=== PATIENT | female | born 1965 | race Caucasian/White ===

== ENCOUNTER 2017-11-19 06:59 | Outpatient (CLI) | payer OTHER ==
[2017-11-19 08:24] LABS: WHITE BLOOD COUNT 8.8 X10'3 (4.5-11.0)
[2017-11-19 08:25] LABS: BASOPHILS % (AUTO) 0.4 % (0-1); EOSINOPHILS % (AUTO) 3.4 % (0-6); HEMATOCRIT 36.5 % (35.0-45.0); HEMOGLOBIN 12.5 g/dl (12.0-16.0); LYMPHOCYTES % (AUTO) 23.7 % (21-51); MEAN CORPUSCULAR HEMOGLOBIN 29.9 PG (27.0-31.0); MEAN CORPUSCULAR HGB CONC 34.2 % (33.0-36.5); MEAN CORPUSCULAR VOLUME 87.3 FL (78-98); MEAN PLATELET VOLUME 8.2 FL (7.4-10.4); MONOCYTES % (AUTO) 8.1 % (2-12); NEUTROPHILS # (AUTO) 5.6 X10'3 (1.8-7.7); NEUTROPHILS % (AUTO) 64.4 % (42-75); PLATELET COUNT 280 X10'3 (140-440); RED BLOOD COUNT 4.18 X10'6 (4.20-5.60); RED CELL DISTRIBUTION WIDTH 13.9 % (11.5-14.5)
[2017-11-19 08:26] LABS: EOSINOPHILS # (AUTO) 0.3 X10'3 (0-0.9); LYMPHOCYTES # (AUTO) 2.1 X10'3 (1.1-4.8); MONOCYTES # (AUTO) 0.7 X10'3 (0-0.9)
[2017-11-19 08:48] LABS: ALANINE AMINOTRANSFERASE 29 U/L (12-78); ALBUMIN 3.7 G/DL (3.4-5.0); ALKALINE PHOSPHATASE 69 IU/L (46-116); ANION GAP 5 (8-16); ASPARTATE AMINO TRANSFERASE 17 U/L (10-37); BILIRUBIN,TOTAL 0.3 MG/DL (0.1-1.0); BLOOD UREA NITROGEN 16 MG/DL (7-18); BUN/CREATININE RATIO 24.2 (6.6-38.0); CALCIUM 9.3 MG/DL (8.5-10.1); CHLORIDE 104 MMOL/L (99-107); CHOL/HDL RATIO 4.4 (0.00-4.99); CHOLESTEROL 172 MG/DL (0-200); CREATININE 0.66 MG/DL (0.40-0.90); GLUCOSE 89 MG/DL (70-104); HDL CHOLESTEROL 39 MG/DL (35-60); LDL CHOLESTEROL 94 MG/DL (50-100); POTASSIUM 4.1 MMOL/L (3.5-5.1); SODIUM 137 MMOL/L (135-145); TOTAL CARBON DIOXIDE 28.5 MMOL/L (24-32); TOTAL PROTEIN 7.4 G/DL (6.4-8.2); TRIGLYCERIDES 190 MG/DL (20-135); eGFR > 90 ML/MIN
[2017-11-21 05:19] LABS: ANTITHYROGLOBULIN AB 1.1 IU/mL (0.0-0.9)
== END 2017-11-19 23:59 | disposition home or self-care (01) ==
LOC: LAB 06:59
PROVIDERS: ATTEND Family Medicine
DX: Z00.01 Encounter for general adult medical examination with abnormal findings (principal); Z12.11 Encounter for screening for malignant neoplasm of colon; Z12.31 Encounter for screening mammogram for malignant neoplasm of breast; K21.9 Gastro-esophageal reflux disease without esophagitis; E03.9 Hypothyroidism, unspecified
CPT/HCPCS: 36415; 80053; 80061; 82306; 84439; 84443; 85025; 86376

== ENCOUNTER 2018-12-22 12:26 | Inpatient (IN) | payer OTHER ==
[~2018-12-22] VITALS: Ht 154.9 cm; Wt 107.4 kg
[2018-12-22 13:18] LABS: BASOPHILS # (AUTO) 0.1 X10'3 (0-0.2); BASOPHILS % (AUTO) 1.2 % (0-1); EOSINOPHILS # (AUTO) 0.2 X10'3 (0-0.9); EOSINOPHILS % (AUTO) 2.4 % (0-6); HEMATOCRIT 40.1 % (35.0-45.0); HEMOGLOBIN 13.1 g/dl (12.0-16.0); LYMPHOCYTES # (AUTO) 2.8 X10'3 (1.1-4.8); LYMPHOCYTES % (AUTO) 34.4 % (21-51); MEAN CORPUSCULAR HEMOGLOBIN 28.5 PG (27.0-31.0); MEAN CORPUSCULAR HGB CONC 32.7 g/dL (33.0-36.5); MEAN CORPUSCULAR VOLUME 87.3 FL (78-98); MEAN PLATELET VOLUME 8.4 FL (7.4-10.4); MONOCYTES # (AUTO) 0.6 X10'3 (0-0.9); NEUTROPHILS # (AUTO) 4.4 X10'3 (1.8-7.7); PLATELET COUNT 336 X10'3 (140-440); RED BLOOD COUNT 4.59 X10'6 (4.20-5.60); RED CELL DISTRIBUTION WIDTH 14.2 % (11.5-14.5); WHITE BLOOD COUNT 8.1 X10'3 (4.5-11.0)
[2018-12-22] MEDS ORDERED: aspirin 81mg tab.chew PO ONE (13:30)
[2018-12-22] MEDS ORDERED: nitroGLYCERIN 0.4mg SUBLingual tab SL PRN (13:30)
[2018-12-22 13:31] LABS: ALANINE AMINOTRANSFERASE 24 U/L (12-78); ALBUMIN 3.9 G/DL (3.4-5.0); ALBUMIN/GLOBULIN RATIO 1.1 (1.1-1.5); ALKALINE PHOSPHATASE 73 IU/L (46-116); ANION GAP 8 (8-16); ASPARTATE AMINO TRANSFERASE 14 U/L (10-37); BILIRUBIN,TOTAL 0.3 MG/DL (0.1-1.0); BLOOD UREA NITROGEN 14 MG/DL (7-18); BUN/CREATININE RATIO 19.4 (6.6-38.0); CALCIUM 9.7 MG/DL (8.5-10.1); CHLORIDE 103 MMOL/L (99-107); CREATININE 0.72 MG/DL (0.40-0.90); GLUCOSE 84 MG/DL (70-104); POTASSIUM 3.8 MMOL/L (3.5-5.1); SODIUM 139 MMOL/L (135-145); TOTAL CARBON DIOXIDE 27.7 MMOL/L (24-32); TOTAL PROTEIN 7.6 G/DL (6.4-8.2); eGFR 85 ML/MIN
--- NOTE | 2018-12-22 13:34 | NUR ---
Baby ASA x#4 held due to patient states she took #4 baby ASA this morning at home. Dr. Delaney informed.
[2018-12-22 13:41] LABS: PARTIAL THROMBOPLASTIN TIME 32 SECONDS (22-32); PROTHROMBIN TIME 10.3 SECONDS (9.0-12.0)
[2018-12-22] MEDS ORDERED: morphine 4 MG/ML inj SYRINge IV PRN ×2 (13:45→15:50)
[2018-12-22] MEDS ORDERED: ondansetron/PF 4mg/2ml inj IV ONE (13:45)
--- NOTE | 2018-12-22 13:46 | NUR ---
PATIENT REPORTS INCREASED PRESSURE AND SHARPPER CP WITH HERRERA AFTER NITRO. SECOND DOSE HELD, DR. RESENDIZ AWARE.
[2018-12-22] MEDS ORDERED: TRAZ-219 PO (14:32)
[2018-12-22] MEDS ORDERED: LEVO50TA8 PO (14:32)
[2018-12-22] MEDS ORDERED: GABA-532 PO (14:32)
[2018-12-22] MEDS ORDERED: PANT40TA4 PO (14:32)
[2018-12-22] MEDS ORDERED: VENL75CA61 PO (14:32)
[2018-12-22] MEDS ORDERED: magnesium Cl slow-release 64mg tablet PO PRN (15:50)
[2018-12-22] MEDS ORDERED: magnesium 4gm in 100ml NS 100 ML IV PRN (15:50)
[2018-12-22] MEDS ORDERED: potassium Cl 40MEQ/NS 500ml 500 ML IV PRN ×2 (15:50)
[2018-12-22] MEDS ORDERED: ondansetron/PF 4mg/2ml inj IV PRN (15:50)
[2018-12-22] MEDS ORDERED: potassium Cl 20 mEq SR tablet PO PRN ×2 (15:50)
[2018-12-22] MEDS ORDERED: magnesium 2GM in 50ml NS 50 ML IV PRN (15:50)
--- NOTE | 2018-12-22 17:13 | NUR ---
I have received report from Pepito BEDOLLA and had the opportunity to ask questions, the patient has not yet arrived from the ED.
[2018-12-22 18:00] VITALS: BP 128/77
--- NOTE | 2018-12-22 18:17 | NUR ---
Problems reprioritized. Patient report given, questions answered & plan of care reviewed with Sánchez BEDOLLA.
[2018-12-22] MEDS: gabapentin 300mg capsule PO SCH ×2 (21:09→21:11)
[2018-12-22] MEDS: traZODone 50mg tablet PO SCH (21:10)
[2018-12-22 22:00] VITALS: BP 113/57
[2018-12-23] VITALS (19 sets, daily range): BP systolic 88–135; BP diastolic 45–77
[2018-12-23 01:28] LABS: BASOPHILS % (AUTO) 0.3 % (0-1); EOSINOPHILS # (AUTO) 0.2 X10'3 (0-0.9); EOSINOPHILS % (AUTO) 2.9 % (0-6); HEMATOCRIT 36.9 % (35.0-45.0); LYMPHOCYTES # (AUTO) 2.4 X10'3 (1.1-4.8); LYMPHOCYTES % (AUTO) 34.5 % (21-51); MEAN CORPUSCULAR HEMOGLOBIN 28.5 PG (27.0-31.0); MEAN CORPUSCULAR HGB CONC 32.6 g/dL (33.0-36.5); MEAN CORPUSCULAR VOLUME 87.6 FL (78-98); MONOCYTES # (AUTO) 0.5 X10'3 (0-0.9); MONOCYTES % (AUTO) 6.8 % (2-12); NEUTROPHILS # (AUTO) 3.8 X10'3 (1.8-7.7); NEUTROPHILS % (AUTO) 55.5 % (42-75); PLATELET COUNT 287 X10'3 (140-440); RED BLOOD COUNT 4.22 X10'6 (4.20-5.60); WHITE BLOOD COUNT 6.9 X10'3 (4.5-11.0)
[2018-12-23 01:37] LABS: ALBUMIN 3.3 G/DL (3.4-5.0); ANION GAP 8 (8-16); BLOOD UREA NITROGEN 13 MG/DL (7-18); BUN/CREATININE RATIO 18.8 (6.6-38.0); CHLORIDE 104 MMOL/L (99-107); CREATININE 0.69 MG/DL (0.40-0.90); GLUCOSE 90 MG/DL (70-104); MAGNESIUM 1.8 MG/DL (1.5-2.4); POTASSIUM 3.8 MMOL/L (3.5-5.1); SODIUM 140 MMOL/L (135-145); TOTAL CARBON DIOXIDE 28.4 MMOL/L (24-32); eGFR 89 ML/MIN
--- NOTE | 2018-12-23 06:27 | NUR ---
Problems reprioritized. Patient report given, questions answered & plan of care reviewed with Efren BEDOLLA.
--- NOTE | 2018-12-23 06:30 | NUR ---
Patient in room MED 307. I have received report from Sánchez BEDOLLA and had the opportunity to ask questions and assume patient care.
[2018-12-23] MEDS: gabapentin 300mg capsule PO SCH ×4 (07:43→21:10)
[2018-12-23] MEDS: levoTHYROXINE 25mcg tablet PO SCH (07:43)
[2018-12-23] MEDS: venlafaxine XR 75mg capsule (Q24H) PO SCH (07:44)
[2018-12-23] MEDS: pantoprazole 40mg Tablet.DR PO SCH (07:44)
[2018-12-23] MEDS ORDERED: traZODone 50mg tablet PO SCH (08:00)
[2018-12-23] MEDS: K and/or MAG REPLACEMENT MC SCH (08:00)
[2018-12-23] MEDS ORDERED: metoprolol tartrate 1mg/ml inj IV PRN (08:40)
[2018-12-23] MEDS ORDERED: nitroGLYCERIN 0.4mg SUBLingual tab SL PRN (08:40)
[2018-12-23] MEDS ORDERED: aminophylline 250mg/10ml inj. IV PRN (08:40)
[2018-12-23] MEDS ORDERED: regadenoson 0.4mg/5ml syringe IV ONE ×2 (08:40→12:18)
--- NOTE | 2018-12-23 11:19 | NUR ---
HERRERA pain Addendum: 12/23/18 at 1119 by Radha Nino STUDENT NADEEM Amended: Links added.
[2018-12-23] MEDS ORDERED: aminophylline inj. 10 ML IV ONE (12:18)
[2018-12-23] MEDS: acetaminophen 325mg tablet PO PRN ×2 (13:30→21:09)
--- NOTE | 2018-12-23 13:32 | NUR ---
Back from stress test and has 8/10 HERRERA pain. Tele showing SR with HR in the 70's. SaO2 on RA 96% Tyl 650 given, will monitor.
--- NOTE | 2018-12-23 14:10 | NUR ---
PAGER ID: [phone] MESSAGE: [id number]. Joie scan results up. Efren BEDOLLA [phone]
--- NOTE | 2018-12-23 17:49 | NUR ---
Student documentation: I have reviewed and agree with all interventions, assessments performed and documented by Radha.
--- NOTE | 2018-12-23 18:52 | NUR ---
Problems reprioritized. Patient report given, questions answered & plan of care reviewed with Sánchez BEDOLLA.
[2018-12-23] MEDS: normal saline 1000ml 1,000 ML IV SCH (20:05)
[2018-12-23] MEDS ORDERED: temazepam 15mg capsule PO PRN (20:10)
[2018-12-23] MEDS: traZODone 50mg tablet PO SCH (21:09)
[2018-12-24 02:00] VITALS: BP 94/52
--- NOTE | 2018-12-24 06:00 | NUR ---
Patient in room MED 308. I have received report from Sánchez BEDOLLA and had the opportunity to ask questions and assume patient care.
[2018-12-24] MEDS ORDERED: fentaNYL/PF 50MCG/1 ML 2ML syringe ONE (06:02)
[2018-12-24] MEDS ORDERED: nitroGLYCERIN-Tridil 50MG/D5W 250 ML IV ONE (06:02)
[2018-12-24] MEDS ORDERED: iohexol 350 MG/ML 50ML vial IV ONE (06:03)
[2018-12-24] MEDS ORDERED: iohexol 350MG/ML 100ml bottle IV ONE (06:03)
[2018-12-24] MEDS ORDERED: LIDOcaine 1% (10mg/ml)w/preservative injection 20ml MDV ONE (06:03)
[2018-12-24] MEDS ORDERED: heparin 1,000unit/ml 10ml vial 10 ML ONE (06:03)
[2018-12-24] MEDS ORDERED: midazolam 2 mg/2 ml injection ONE (06:03)
--- NOTE | 2018-12-24 06:17 | NUR ---
Problems reprioritized. Patient report given, questions answered & plan of care reviewed with Efren BEDOLLA.
[2018-12-24 06:19] LABS: BASOPHILS % (AUTO) 0.6 % (0-1); EOSINOPHILS # (AUTO) 0.2 X10'3 (0-0.9); EOSINOPHILS % (AUTO) 3.1 % (0-6); HEMATOCRIT 36.7 % (35.0-45.0); HEMOGLOBIN 12.2 g/dl (12.0-16.0); LYMPHOCYTES # (AUTO) 2.2 X10'3 (1.1-4.8); LYMPHOCYTES % (AUTO) 30.6 % (21-51); MEAN CORPUSCULAR HEMOGLOBIN 28.5 PG (27.0-31.0); MEAN CORPUSCULAR HGB CONC 33.2 g/dL (33.0-36.5); MEAN CORPUSCULAR VOLUME 85.8 FL (78-98); MEAN PLATELET VOLUME 8.6 FL (7.4-10.4); MONOCYTES # (AUTO) 0.6 X10'3 (0-0.9); MONOCYTES % (AUTO) 8.6 % (2-12); NEUTROPHILS # (AUTO) 4.2 X10'3 (1.8-7.7); NEUTROPHILS % (AUTO) 57.1 % (42-75); PLATELET COUNT 287 X10'3 (140-440); RED BLOOD COUNT 4.28 X10'6 (4.20-5.60); RED CELL DISTRIBUTION WIDTH 14.9 % (11.5-14.5); WHITE BLOOD COUNT 7.3 X10'3 (4.5-11.0)
[2018-12-24] MEDS ORDERED: diphenhydrAMINE 50 mg/ml inj ONE (06:24)
--- NOTE | 2018-12-24 06:26 | NUR ---
Pt. headed to [employer]
[2018-12-24 06:32] LABS: ALBUMIN 3.2 G/DL (3.4-5.0); ANION GAP 6 (8-16); BLOOD UREA NITROGEN 12 MG/DL (7-18); BUN/CREATININE RATIO 17.1 (6.6-38.0); CALCIUM 8.7 MG/DL (8.5-10.1); CHLORIDE 104 MMOL/L (99-107); GLUCOSE 92 MG/DL (70-104); POTASSIUM 4.2 MMOL/L (3.5-5.1); SODIUM 141 MMOL/L (135-145); TOTAL CARBON DIOXIDE 30.6 MMOL/L (24-32); eGFR 88 ML/MIN
[2018-12-24 07:00] VITALS: BP 100/50
[2018-12-24] MEDS ORDERED: normal saline 1000ml 1,000 ML IV SCH (07:50)
[2018-12-24] MEDS: diltiazem CD 120mg capsule (once-daily) PO SCH ×2 (08:00→11:36)
[2018-12-24] MEDS: K and/or MAG REPLACEMENT MC SCH (08:00)
[2018-12-24] MEDS: levoTHYROXINE 25mcg tablet PO SCH (08:11)
[2018-12-24] MEDS: venlafaxine XR 75mg capsule (Q24H) PO SCH (08:11)
[2018-12-24] MEDS: pantoprazole 40mg Tablet.DR PO SCH (08:11)
[2018-12-24] MEDS: gabapentin 300mg capsule PO SCH ×2 (08:11→13:25)
[2018-12-24 08:48] LABS: CHOL/HDL RATIO 5.4 (0.00-4.99); CHOLESTEROL 182 MG/DL (0-200); HDL CHOLESTEROL 34 MG/DL (35-60); LDL CHOLESTEROL 119 MG/DL (50-100); TRIGLYCERIDES 208 MG/DL (20-135)
[2018-12-24 11:00] VITALS: BP 130/60
--- NOTE | 2018-12-24 11:13 | NUR ---
PAGER ID: [phone] MESSAGE: [phone]. Pt. back from Director Of Quality and cleared by Dr. Campos with orders for a new home med. Efren BEDOLLA [phone]
[2018-12-24] MEDS: normal saline 1000ml 1,000 ML IV SCH (12:45)
[2018-12-24] MEDS ORDERED: CARCD120C PO (14:36)
== END 2018-12-24 16:00 | disposition home or self-care (01) | DRG 287 ==
LOC: ER 12:26 → MED 3N 15:48 → ER 15:48 → MED 3N 18:09 → OBSVTOIN 12-23 14:00
PROVIDERS: ADMIT Internal Medicine; ATTEND Family Medicine
PROC: 4A02XM4 Measurement of Cardiac Total Activity, External Approach (ICD-10-PCS; 2018-12-23)
PROC: 3E033HZ Introduction of Radioactive Substance into Peripheral Vein, Percutaneous Approach (ICD-10-PCS; 2018-12-23)
PROC: 4A023N7 Measurement of Cardiac Sampling and Pressure, Left Heart, Percutaneous Approach (ICD-10-PCS; principal; 2018-12-24)
PROC: B2111ZZ Fluoroscopy of Multiple Coronary Arteries using Low Osmolar Contrast (ICD-10-PCS; 2018-12-24)
PROC: B2151ZZ Fluoroscopy of Left Heart using Low Osmolar Contrast (ICD-10-PCS; 2018-12-24)
PROC: 5A09357 Assistance with Respiratory Ventilation, Less than 24 Consecutive Hours, Continuous Positive Airway Pressure (ICD-10-PCS; 2018-12-24)
DX: I25.111 Atherosclerotic heart disease of native coronary artery with angina pectoris with documented spasm (principal); Z68.41 Body mass index [BMI] 40.0-44.9, adult; E06.3 Autoimmune thyroiditis; E78.5 Hyperlipidemia, unspecified; F32.9 Major depressive disorder, single episode, unspecified; G43.909 Migraine, unspecified, not intractable, without status migrainosus; E66.01 Morbid (severe) obesity due to excess calories; G47.33 Obstructive sleep apnea (adult) (pediatric); K21.9 Gastro-esophageal reflux disease without esophagitis; M79.7 Fibromyalgia; M54.9 Dorsalgia, unspecified; M54.2 Cervicalgia; G89.29 Other chronic pain; Z90.710 Acquired absence of both cervix and uterus; Z88.1 Allergy status to other antibiotic agents; Z88.8 Allergy status to other drugs, medicaments and biological substances; Z79.899 Other long term (current) drug therapy; Z98.1 Arthrodesis status
CPT/HCPCS: 36415; 71045; 78452; 80048; 80053; 80061; 83735; 84484; 85025; 85610; 85730; 87070; 93005; 93017; 93306; 93458; 99152; 99153; A4620; A6257; A9500; C1769; G0378; J0280; J1200; J1644; J2001; J2250; J2270; J2405; J3010; J3490; J7030; Q9967

== ENCOUNTER 2019-04-07 06:39 | Day surgery (SDC) | payer OTHER ==
[~2019-04-07] VITALS: Ht 154.9 cm; Wt 112.7 kg
[~2019-04-07 06:39] MED LIST: CARCD120C PO; GABA-532 PO; LEVO50TA8 PO; PANT40TA4 PO; TRAZ-219 PO; VENL75CA61 PO
[2019-04-07 06:45] VITALS: BP 134/71
[2019-04-07] MEDS ORDERED: fentaNYL/PF 50MCG/1 ML 2ML syringe ONE (06:49)
[2019-04-07] MEDS ORDERED: MIDAZolam 5mg/5ml vial ONE (06:49)
[2019-04-07] MEDS ORDERED: LIDOcaine Viscous 15ml cup ONE (06:49)
[2019-04-07] MEDS ORDERED: DILT-35 PO (07:05)
[2019-04-07] MEDS ORDERED: GABA-532 PO (07:06)
[2019-04-07] MEDS ORDERED: CETI10CA PO (07:07)
[2019-04-07] MEDS ORDERED: TRAZ-251 PO (07:07)
[2019-04-07] MEDS ORDERED: MULT-955 PO (07:08)
[2019-04-07 08:05] VITALS: BP 131/74
[2019-04-07 08:15] VITALS: BP 126/91
[2019-04-07 08:25] VITALS: BP 127/85
[2019-04-07 08:35] VITALS: BP 133/85
== END 2019-04-07 08:45 | disposition home or self-care (01) ==
LOC: GI LAB 06:39
PROVIDERS: ATTEND Internal Medicine Gastroenterology
DX: K21.9 Gastro-esophageal reflux disease without esophagitis (principal); K29.50 Unspecified chronic gastritis without bleeding
CPT/HCPCS: 43239; 99152; J2250; J3010; J7030; A4620

== ENCOUNTER 2019-08-25 13:58 | Emergency (ER) | payer OTHER ==
[~2019-08-25] VITALS: Ht 154.9 cm; Wt 87.9 kg
[~2019-08-25 13:58] MED LIST changes: -CARCD120C PO; +CETI10CA PO; +DILT-35 PO; +MULT-955 PO; -TRAZ-219 PO; +TRAZ-251 PO
[2019-08-25] MEDS ORDERED: ketorolac tromethamine 15mg/ml inj. IM ONE (14:40)
[2019-08-25 15:13] VITALS: BP 129/72
== END 2019-08-25 15:15 | disposition home or self-care (01) ==
LOC: ER 13:59
DX: M54.2 Cervicalgia (principal); R51 Headache; R20.0 Anesthesia of skin; Z88.1 Allergy status to other antibiotic agents; Z88.8 Allergy status to other drugs, medicaments and biological substances; Z79.899 Other long term (current) drug therapy
CPT/HCPCS: 96372; 99283; J1885

== ENCOUNTER 2020-02-02 15:02 | Emergency (ER) | payer OTHER ==
[~2020-02-02] VITALS: Ht 154.9 cm; Wt 110.0 kg
[2020-02-02 16:12] LABS: BASOPHILS % (AUTO) 0.4 % (0-1); EOSINOPHILS # (AUTO) 0.2 X10'3 (0-0.9); EOSINOPHILS % (AUTO) 1.7 % (0-6); HEMATOCRIT 36.8 % (35.0-45.0); HEMOGLOBIN 12.1 g/dl (12.0-16.0); LYMPHOCYTES # (AUTO) 2.6 X10'3 (1.1-4.8); LYMPHOCYTES % (AUTO) 26.5 % (21-51); MEAN CORPUSCULAR HEMOGLOBIN 29.3 PG (27.0-31.0); MEAN PLATELET VOLUME 8.1 FL (7.4-10.4); MONOCYTES # (AUTO) 0.9 X10'3 (0-0.9); MONOCYTES % (AUTO) 9.2 % (2-12); NEUTROPHILS % (AUTO) 62.2 % (42-75); PLATELET COUNT 315 X10'3 (140-440); RED BLOOD COUNT 4.14 X10'6 (4.20-5.60); RED CELL DISTRIBUTION WIDTH 13.4 % (11.5-14.5); WHITE BLOOD COUNT 9.7 X10'3 (4.5-11.0)
[2020-02-02 16:35] LABS: ALANINE AMINOTRANSFERASE 15 U/L (12-78); ALBUMIN 3.9 G/DL (3.4-5.0); ALBUMIN/GLOBULIN RATIO 1.1 (1.1-1.5); ALKALINE PHOSPHATASE 74 IU/L (46-116); ANION GAP 5 (8-16); ASPARTATE AMINO TRANSFERASE 11 U/L (10-37); BILIRUBIN,TOTAL 0.1 MG/DL (0.1-1.0); BLOOD UREA NITROGEN 16 MG/DL (7-18); BUN/CREATININE RATIO 21.1 (6.6-38.0); CALCIUM 8.7 MG/DL (8.5-10.1); CHLORIDE 108 MMOL/L (99-107); CREATININE 0.76 MG/DL (0.40-0.90); GLUCOSE 85 MG/DL (70-104); POTASSIUM 3.9 MMOL/L (3.5-5.1); SODIUM 143 MMOL/L (135-145); TOTAL CARBON DIOXIDE 29.6 MMOL/L (24-32); TOTAL PROTEIN 7.4 G/DL (6.4-8.2); eGFR 79 ML/MIN
[2020-02-02 16:42] LABS: MAGNESIUM 2.1 MG/DL (1.5-2.4)
--- NOTE | 2020-02-02 18:48 | NUR ---
Patient resting comfortably in bed with no needs at this time. Patient is updated on POC.
[2020-02-02] MEDS ORDERED: ALBU8HFA PO (19:30)
[2020-02-02 19:38] VITALS: BP 138/84
== END 2020-02-02 19:35 | disposition home or self-care (01) ==
LOC: ER 15:02
DX: R53.81 Other malaise (principal); R53.83 Other fatigue; R06.02 Shortness of breath; R07.89 Other chest pain; R50.9 Fever, unspecified; Z88.1 Allergy status to other antibiotic agents; Z88.8 Allergy status to other drugs, medicaments and biological substances; Z79.899 Other long term (current) drug therapy
CPT/HCPCS: 12013; 36415; 71045; 80053; 83735; 83880; 84484; 85025; 85379; 93005; 99285

== ENCOUNTER 2020-09-20 14:29 | Inpatient (IN) | payer BC, OTHER ==
[~2020-09-20] VITALS: Ht 154.9 cm; Wt 106.6 kg
[~2020-09-20 14:29] MED LIST changes: -PANT40TA4 PO; +PANT40TA54 PO
[2020-09-20 15:40] LABS: BASOPHILS # (AUTO) 0.1 X10'3 (0-0.2); BASOPHILS % (AUTO) 0.6 % (0-1); EOSINOPHILS # (AUTO) 0.2 X10'3 (0-0.9); EOSINOPHILS % (AUTO) 2.4 % (0-6); HEMATOCRIT 38.7 % (35.0-45.0); HEMOGLOBIN 12.8 g/dl (12.0-16.0); LYMPHOCYTES # (AUTO) 3.4 X10'3 (1.1-4.8); LYMPHOCYTES % (AUTO) 37.7 % (21-51); MEAN CORPUSCULAR HEMOGLOBIN 28.9 PG (27.0-31.0); MEAN CORPUSCULAR VOLUME 87.7 FL (78-98); MEAN PLATELET VOLUME 8.3 FL (7.4-10.4); MONOCYTES # (AUTO) 0.8 X10'3 (0-0.9); MONOCYTES % (AUTO) 8.8 % (2-12); NEUTROPHILS # (AUTO) 4.5 X10'3 (1.8-7.7); NEUTROPHILS % (AUTO) 50.5 % (42-75); PLATELET COUNT 344 X10'3 (140-440); RED BLOOD COUNT 4.41 X10'6 (4.20-5.60); RED CELL DISTRIBUTION WIDTH 13.9 % (11.5-14.5); WHITE BLOOD COUNT 8.9 X10'3 (4.5-11.0)
--- NOTE | 2020-09-20 15:48 | NUR ---
Pt is CERTIFIED EXECUTIVE CHEF, requests additional EKG, performed at this time, PA at bedside, saw new EKG, NSR
--- NOTE | 2020-09-20 15:49 | NUR ---
Pt with intermittent chest pain, sharp, to center of chest, radiating to left neck, left shoulder. PA aware.
[2020-09-20 16:06] LABS: ALANINE AMINOTRANSFERASE 23 U/L (12-78); ALBUMIN/GLOBULIN RATIO 1.1 (1.1-1.5); ALKALINE PHOSPHATASE 78 IU/L (46-116); ANION GAP 11 (8-16); ASPARTATE AMINO TRANSFERASE 15 U/L (10-37); BILIRUBIN,TOTAL 0.2 MG/DL (0.1-1.0); BLOOD UREA NITROGEN 13 MG/DL (7-18); BUN/CREATININE RATIO 15.5 (6.6-38.0); CALCIUM 9.4 MG/DL (8.5-10.1); CHLORIDE 108 MMOL/L (99-107); CREATININE 0.84 MG/DL (0.40-0.90); GLUCOSE 85 MG/DL (70-104); POTASSIUM 3.7 MMOL/L (3.5-5.1); SODIUM 143 MMOL/L (135-145); TOTAL CARBON DIOXIDE 24.1 MMOL/L (24-32); TOTAL PROTEIN 7.7 G/DL (6.4-8.2); eGFR 70 ML/MIN
--- NOTE | 2020-09-20 16:35 | NUR ---
PA at bedside
[2020-09-20] MEDS ORDERED: aspirin 325mg tablet PO ONE (16:40)
[2020-09-20] MEDS ORDERED: morphine 2 MG/ML inj. syringe IV ONE (16:40)
[2020-09-20] MEDS: nitroGLYCERIN 0.4mg SUBLingual tab SL PRN ×2 (16:55→18:05)
--- NOTE | 2020-09-20 17:10 | NUR ---
chest pain down to 2/10 after Nitro, pt req's morphine for headache/chest pain, see eMAR
[2020-09-20] MEDS ORDERED: acetaminophen 325mg tablet PO ONE (17:30)
--- NOTE | 2020-09-20 18:03 | NUR ---
NSR per tele. Pt with increased "chest spasms." Pt req's another Nitro, states she has been told to take nitro x 3 for chest pain/spasms.
[2020-09-20] MEDS ORDERED: regadenoson 0.4mg/5ml syringe IV PRN (19:45)
[2020-09-20] MEDS ORDERED: acetaminophen 325mg tablet PO PRN ×2 (19:45)
[2020-09-20] MEDS ORDERED: nitroGLYCERIN 0.4mg SUBLingual tab SL PRN (19:45)
[2020-09-20] MEDS ORDERED: aminophylline 250mg/10ml inj. IV PRN (19:45)
[2020-09-20] MEDS ORDERED: ondansetron/PF 4mg/2ml inj IV PRN (19:45)
[2020-09-20] MEDS ORDERED: magnesium Cl slow-release 64mg tablet PO PRN (19:45)
[2020-09-20] MEDS ORDERED: mag hydrox/Alum hydrox/simeth 30ml oral suspension PO PRN (19:45)
[2020-09-20] MEDS ORDERED: magnesium 4gm in 100ml NS 100 ML IV PRN (19:45)
[2020-09-20] MEDS ORDERED: HYDROcodone/acetaminophen 5mg/325mg tablet PO PRN (19:45)
[2020-09-20] MEDS ORDERED: HYDROcodone/acetaminophen 10/325mg tab PO PRN (19:45)
[2020-09-20] MEDS ORDERED: magnesium 2GM in 50ml NS 50 ML IV PRN (19:45)
[2020-09-20] MEDS: normal saline 1000ml 1,000 ML IV SCH ×2 (19:45→23:34)
[2020-09-20] MEDS ORDERED: potassium CL 10mEq/100ml bag 100 ML IV PRN ×2 (19:45)
[2020-09-20] MEDS ORDERED: potassium Cl 20 mEq SR tablet PO PRN ×2 (19:45)
[2020-09-20] MEDS ORDERED: morphine 2 MG/ML inj. syringe IV PRN ×2 (19:45)
[2020-09-20] MEDS ORDERED: metoprolol tartrate 1mg/ml inj IV PRN (19:45)
[2020-09-20] MEDS ORDERED: magnesium hydroxide 30ml (MOM) UD suspension PO PRN (19:45)
[2020-09-20] MEDS: K and/or MAG REPLACEMENT MC SCH (20:00)
[2020-09-20] MEDS ORDERED: temazepam 15mg capsule PO PRN (21:00)
[2020-09-20] MEDS ORDERED: traZODone 50mg tablet PO SCH (21:00)
[2020-09-20] MEDS: heparin, porcine 5000 units/ml vial SQ SCH (22:40)
--- NOTE | 2020-09-20 22:40 | NUR ---
Patient in room ED 11. I have received report from [facility] and had the opportunity to ask questions and assume patient care.
[2020-09-20 23:00] VITALS: BP 135/68
--- NOTE | 2020-09-20 23:00 | NUR ---
Pt arrived @2300 from Er via gurney. Oriented to room, medications due for administrations, 2 RN skin check completed, and darted. Pt set up with home bipap and strile water for bipap. Gabriella fluids are running. Will continue to monitor.
[2020-09-20] MEDS: gabapentin 300mg capsule PO SCH (23:30)
[2020-09-21] VITALS (17 sets, daily range): BP systolic 90–151; BP diastolic 49–96
[2020-09-21 03:20] LABS: BASOPHILS # (AUTO) 0.1 X10'3 (0-0.2); BASOPHILS % (AUTO) 0.8 % (0-1); EOSINOPHILS # (AUTO) 0.2 X10'3 (0-0.9); HEMATOCRIT 35.1 % (35.0-45.0); HEMOGLOBIN 11.6 g/dl (12.0-16.0); LYMPHOCYTES # (AUTO) 2.6 X10'3 (1.1-4.8); LYMPHOCYTES % (AUTO) 36.2 % (21-51); MEAN CORPUSCULAR HGB CONC 33.1 g/dL (33.0-36.5); MEAN CORPUSCULAR VOLUME 87.8 FL (78-98); MEAN PLATELET VOLUME 8.4 FL (7.4-10.4); MONOCYTES # (AUTO) 0.5 X10'3 (0-0.9); MONOCYTES % (AUTO) 6.9 % (2-12); NEUTROPHILS # (AUTO) 3.8 X10'3 (1.8-7.7); NEUTROPHILS % (AUTO) 53.1 % (42-75); PLATELET COUNT 296 X10'3 (140-440); RED CELL DISTRIBUTION WIDTH 13.7 % (11.5-14.5); WHITE BLOOD COUNT 7.1 X10'3 (4.5-11.0)
[2020-09-21 03:22] LABS: ALANINE AMINOTRANSFERASE 25 U/L (12-78); ALBUMIN 3.3 G/DL (3.4-5.0); ALKALINE PHOSPHATASE 73 IU/L (46-116); ANION GAP 10 (8-16); ASPARTATE AMINO TRANSFERASE 19 U/L (10-37); BILIRUBIN,TOTAL 0.3 MG/DL (0.1-1.0); BLOOD UREA NITROGEN 17 MG/DL (7-18); BUN/CREATININE RATIO 20.7 (6.6-38.0); CALCIUM 8.8 MG/DL (8.5-10.1); CHLORIDE 106 MMOL/L (99-107); CREATININE 0.82 MG/DL (0.40-0.90); GLUCOSE 96 MG/DL (70-104); POTASSIUM 3.8 MMOL/L (3.5-5.1); SODIUM 140 MMOL/L (135-145); TOTAL CARBON DIOXIDE 24.4 MMOL/L (24-32); TOTAL PROTEIN 6.7 G/DL (6.4-8.2); eGFR 72 ML/MIN
[2020-09-21 03:25] LABS: MAGNESIUM 1.9 MG/DL (1.5-2.4)
--- NOTE | 2020-09-21 04:54 | NUR ---
Orientee documentation: I have reviewed and agree with all interventions, assessments performed and documented by Erum BEDOLLA. Orientee Medication Administration: For this medication-pass time frame, all medication were reviewed, dispensed, administered and documented per hospital policy by Erum BEDOLLA.
--- NOTE | 2020-09-21 06:12 | NUR ---
Problems reprioritized. Patient report given, questions answered & plan of care reviewed with Brandie BEDOLLA.
[2020-09-21] MEDS: gabapentin 300mg capsule PO SCH ×2 (07:31→15:33)
[2020-09-21] MEDS: heparin, porcine 5000 units/ml vial SQ SCH (07:34)
[2020-09-21] MEDS ORDERED: pantoprazole 40mg Tablet.DR PO SCH (08:00)
[2020-09-21] MEDS ORDERED: diltiazem CD 120mg capsule (once-daily) PO SCH (08:00)
[2020-09-21] MEDS ORDERED: cetirizine 10mg tablet PO SCH (08:00)
[2020-09-21] MEDS ORDERED: levoTHYROXINE 25mcg tablet PO SCH (08:00)
[2020-09-21] MEDS: K and/or MAG REPLACEMENT MC SCH (08:00)
[2020-09-21] MEDS ORDERED: venlafaxine XR 75mg capsule (Q24H) PO SCH (08:00)
--- NOTE | 2020-09-21 13:46 | NUR ---
notified. PAGER ID: [phone] MESSAGE: Re: Madhuri Escalera. 2021. Echo and Lexiscan results have been resulted. Patient experienced 6/10 chest pain and was given morphine. Thanks. Brandie Weiner [phone].
--- NOTE | 2020-09-21 16:12 | NUR ---
notified. PAGER ID: [phone] MESSAGE: Re: Madhuri Escalera. 3022. Pt. 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 Brandie Larsen.
[2020-09-21] MEDS ORDERED: iohexol 350MG/ML 100ml bottle IV ONE (16:15)
--- NOTE | 2020-09-21 16:32 | NUR ---
notified. PAGER ID: [phone] MESSAGE: Re: Madhuri Escalera. 3022. CT taken; images in PACS. Awaiting report. Brandie Larsen.
--- NOTE | 2020-09-21 17:00 | NUR ---
notified. PAGER ID: [phone] MESSAGE: Re. Mdahuri Escalera. 3024. CT IMPRESSION: 1. No evidence of pulmonary embolism. 2. Evidence of air trapping, likely related to underlying small airways disease. Again, pt. is requesting Beth consult. Thanks. Brandie. [phone].
--- NOTE | 2020-09-21 18:24 | NUR ---
Problems reprioritized. Patient report given, questions answered & plan of care reviewed with GRAEME Smith.
[2020-09-21] MEDS ORDERED: DILT180C89 PO (18:40)
--- NOTE | 2020-09-21 18:46 | NUR ---
Paged Dr. Booker RE: Pt Madhuri Escalera RM [phone]. Dr. Campos increased Diltiazem CD 180mg. Okay to discharge? Luis [phone] Dr. Booker returned call. Good to discharge.
--- NOTE | 2020-09-21 19:35 | NUR ---
Patient alert and oriented, stable to discharge. Questions answered, education provided. Discharged with belongings. PIV removed from right forearm, catheter in tact. Tele removed. Patient was wheeled to [facility] where she was met by her to return home. Capable of transferring from wheelchair to vehicle without incident. Informed to return to [facility] if previous symptoms return.
== END 2020-09-21 19:30 | disposition home or self-care (01) | DRG 313 ==
LOC: EEVIPCON 14:30 → ER 14:30 → ED HOLD 19:42 → PCU 3S 22:57
PROVIDERS: ADMIT Internal Medicine; ATTEND Internal Medicine
DX: R07.9 Chest pain, unspecified (principal); Z68.41 Body mass index [BMI] 40.0-44.9, adult; E03.9 Hypothyroidism, unspecified; E78.5 Hyperlipidemia, unspecified; F32.9 Major depressive disorder, single episode, unspecified; F41.9 Anxiety disorder, unspecified; G43.909 Migraine, unspecified, not intractable, without status migrainosus; G47.33 Obstructive sleep apnea (adult) (pediatric); E66.01 Morbid (severe) obesity due to excess calories; G47.30 Sleep apnea, unspecified; M54.9 Dorsalgia, unspecified; G89.29 Other chronic pain; K21.9 Gastro-esophageal reflux disease without esophagitis; Z20.828 Contact with and (suspected) exposure to other viral communicable diseases; Z79.899 Other long term (current) drug therapy; Z90.710 Acquired absence of both cervix and uterus; Z88.1 Allergy status to other antibiotic agents; Z88.8 Allergy status to other drugs, medicaments and biological substances
CPT/HCPCS: 36415; 71045; 71275; 78452; 80053; 83735; 83880; 84484; 85025; 87081; 87635; 93005; 93017; 93306; 93308; 96374; 99285; A9500; C9803; G0378; J0280; J1644; J2270; J2785; J7030; Q9967

== ENCOUNTER 2020-10-03 11:18 | Outpatient (CLI) | payer BC, OTHER ==
[~2020-10-03 11:18] MED LIST changes: -DILT-35 PO; +DILT180C89 PO
[2020-10-03 12:27] LABS: C-REACTIVE PROTEIN 0.16 MG/DL (0.0-0.5)
== END 2020-10-03 23:59 | disposition home or self-care (01) ==
LOC: LAB 11:18
PROVIDERS: ATTEND Internal Medicine Infectious Disease
DX: R74.02 Elevation of levels of lactic acid dehydrogenase [LDH] (principal); R79.82 Elevated C-reactive protein (CRP)
CPT/HCPCS: 36415; 83615; 86140

== ENCOUNTER 2020-10-04 07:22 | Outpatient (CLI) | payer BC, OTHER | END 2020-10-04 23:59 | disposition home or self-care (01) | LOC: LAB 07:22 | PROVIDERS: ATTEND Family Medicine | DX: Z00.00 Encounter for general adult medical examination without abnormal findings (principal); E06.3 Autoimmune thyroiditis; K21.9 Gastro-esophageal reflux disease without esophagitis; Z12.11 Encounter for screening for malignant neoplasm of colon; Z12.39 Encounter for other screening for malignant neoplasm of breast | CPT/HCPCS: 36415; 84443 ==

== ENCOUNTER 2020-10-07 10:01 | Outpatient (CLI) | payer BC, OTHER ==
[~2020-10-07] VITALS: Ht 154.9 cm; Wt 108.9 kg
[2020-10-07] MEDS ORDERED: albuterol 2.5 MG/3 ML nebule NEB ONE (10:55)
== END 2020-10-07 23:59 | disposition home or self-care (01) ==
LOC: RT 10:01
PROVIDERS: ATTEND Internal Medicine Infectious Disease
DX: R06.00 Dyspnea, unspecified (principal)
CPT/HCPCS: 94060; 94727; 94729

== ENCOUNTER 2020-10-07 16:06 | Outpatient (CLI) | payer BC, OTHER ==
[2020-10-07 16:34] LABS: BASOPHILS # (AUTO) 0.1 X10'3 (0-0.2); EOSINOPHILS # (AUTO) 0.3 X10'3 (0-0.9); EOSINOPHILS % (AUTO) 2.6 % (0-6); HEMATOCRIT 36.1 % (35.0-45.0); HEMOGLOBIN 11.8 g/dl (12.0-16.0); LYMPHOCYTES # (AUTO) 3.2 X10'3 (1.1-4.8); LYMPHOCYTES % (AUTO) 32.3 % (21-51); MEAN CORPUSCULAR HEMOGLOBIN 29.1 PG (27.0-31.0); MEAN CORPUSCULAR HGB CONC 32.7 g/dL (33.0-36.5); MEAN PLATELET VOLUME 8.2 FL (7.4-10.4); MONOCYTES # (AUTO) 0.6 X10'3 (0-0.9); MONOCYTES % (AUTO) 6.4 % (2-12); NEUTROPHILS # (AUTO) 5.7 X10'3 (1.8-7.7); NEUTROPHILS % (AUTO) 57.7 % (42-75); PLATELET COUNT 334 X10'3 (140-440); RED BLOOD COUNT 4.06 X10'6 (4.20-5.60); RED CELL DISTRIBUTION WIDTH 14.6 % (11.5-14.5); WHITE BLOOD COUNT 9.8 X10'3 (4.5-11.0)
[2020-10-07 16:51] LABS: ALANINE AMINOTRANSFERASE 32 U/L (12-78); ALBUMIN 3.9 G/DL (3.4-5.0); ALBUMIN/GLOBULIN RATIO 1.1 (1.1-1.5); ALKALINE PHOSPHATASE 79 IU/L (46-116); ANION GAP 11 (8-16); ASPARTATE AMINO TRANSFERASE 18 U/L (10-37); BILIRUBIN,TOTAL 0.4 MG/DL (0.1-1.0); BLOOD UREA NITROGEN 14 MG/DL (7-18); BUN/CREATININE RATIO 17.5 (6.6-38.0); CALCIUM 9.1 MG/DL (8.5-10.1); CHLORIDE 107 MMOL/L (99-107); GLUCOSE 94 MG/DL (70-104); POTASSIUM 3.8 MMOL/L (3.5-5.1); SODIUM 144 MMOL/L (135-145); TOTAL CARBON DIOXIDE 26.4 MMOL/L (24-32); TOTAL PROTEIN 7.4 G/DL (6.4-8.2); eGFR 74 ML/MIN
== END 2020-10-07 23:59 | disposition home or self-care (01) ==
LOC: LAB 16:06
PROVIDERS: ATTEND Family Medicine
DX: R06.02 Shortness of breath (principal)
CPT/HCPCS: 36415; 80053; 85025

== ENCOUNTER 2020-11-25 06:46 | Outpatient (CLI) | payer BC, OTHER ==
[2020-11-25 09:05] LABS: ALANINE AMINOTRANSFERASE 24 U/L (12-78); ALBUMIN 3.9 G/DL (3.4-5.0); ALBUMIN/GLOBULIN RATIO 1.1 (1.1-1.5); ALKALINE PHOSPHATASE 78 IU/L (46-116); ANION GAP 8 (8-16); ASPARTATE AMINO TRANSFERASE 17 U/L (10-37); BILIRUBIN,TOTAL 0.3 MG/DL (0.1-1.0); BLOOD UREA NITROGEN 16 MG/DL (7-18); BUN/CREATININE RATIO 19.3 (6.6-38.0); CALCIUM 9.2 MG/DL (8.5-10.1); CHLORIDE 105 MMOL/L (99-107); CREATININE 0.83 MG/DL (0.40-0.90); GLUCOSE 106 MG/DL (70-104); POTASSIUM 4.7 MMOL/L (3.5-5.1); SODIUM 140 MMOL/L (135-145); TOTAL CARBON DIOXIDE 27.1 MMOL/L (24-32); TOTAL PROTEIN 7.6 G/DL (6.4-8.2); eGFR 71 ML/MIN
== END 2020-11-25 23:59 | disposition home or self-care (01) ==
LOC: LAB 06:46
PROVIDERS: ATTEND Family Medicine
DX: R60.0 Localized edema (principal)
CPT/HCPCS: 36415; 80053; 83735

== ENCOUNTER 2020-12-26 07:54 | Outpatient (CLI) | payer BC, OTHER | END 2020-12-26 23:59 | disposition home or self-care (01) | LOC: RAD 07:54 | PROVIDERS: ATTEND Family Medicine | DX: M19.011 Primary osteoarthritis, right shoulder (principal) | CPT/HCPCS: 73221 ==

== ENCOUNTER 2021-02-21 06:30 | Day surgery (SDC) | payer BC, OTHER ==
[~2021-02-21] VITALS: Ht 154.9 cm; Wt 102.3 kg
[2021-02-21 06:40] VITALS: BP 125/84
[2021-02-21] MEDS ORDERED: fentaNYL/PF 50MCG/1 ML 2ML syringe ONE (06:45)
[2021-02-21] MEDS ORDERED: MIDAZolam 1 MG/ML 5ML VIAL ONE (06:45)
[2021-02-21] MEDS ORDERED: DILT120C94 PO (07:02)
[2021-02-21] MEDS ORDERED: GABA600T13 PO (07:03)
[2021-02-21 08:45] VITALS: BP 122/72
[2021-02-21 08:55] VITALS: BP 111/71
[2021-02-21 09:05] VITALS: BP 116/73
[2021-02-21 09:15] VITALS: BP 116/62
== END 2021-02-21 09:30 | disposition home or self-care (01) ==
LOC: GI LAB 06:30
PROVIDERS: ATTEND Internal Medicine Gastroenterology
DX: Z12.11 Encounter for screening for malignant neoplasm of colon (principal); K57.30 Diverticulosis of large intestine without perforation or abscess without bleeding; Z79.899 Other long term (current) drug therapy
CPT/HCPCS: 45378; 99152; 99153; J2250; J3010; J7040; A4620

== ENCOUNTER 2021-03-25 09:43 | Emergency (ER) | payer OTHER ==
[~2021-03-25] VITALS: Ht 154.9 cm; Wt 102.3 kg
[~2021-03-25 09:43] MED LIST changes: +DILT120C94 PO; -DILT180C89 PO; -GABA-532 PO; +GABA600T13 PO
[2021-03-25 10:13] VITALS: BP 129/69
== END 2021-03-25 12:12 | disposition home or self-care (01) ==
LOC: EEVIPCON 09:43 → ER 09:43
DX: M25.561 Pain in right knee (principal); G89.29 Other chronic pain; M54.9 Dorsalgia, unspecified
CPT/HCPCS: 29505; 73564; 99283

== ENCOUNTER 2021-07-03 08:39 | Outpatient (CLI) | payer BC | END 2021-07-03 23:59 | disposition home or self-care (01) | LOC: RAD 08:39 | PROVIDERS: ATTEND Family Medicine | DX: S83.411A Sprain of medial collateral ligament of right knee, initial encounter (principal); S83.421A Sprain of lateral collateral ligament of right knee, initial encounter; M94.261 Chondromalacia, right knee; M62.561 Muscle wasting and atrophy, not elsewhere classified, right lower leg; M71.21 Synovial cyst of popliteal space [Baker], right knee; M25.461 Effusion, right knee; X58.XXXA Exposure to other specified factors, initial encounter; Y93.89 Activity, other specified; Y92.89 Other specified places as the place of occurrence of the external cause; Y99.8 Other external cause status | CPT/HCPCS: 73721 ==

== ENCOUNTER 2021-08-02 17:12 | Outpatient (CLI) | payer OTHER | END 2021-08-02 23:59 | disposition home or self-care (01) | LOC: LAB 17:12 | PROVIDERS: ATTEND Internal Medicine Infectious Disease | DX: Z11.52 Encounter for screening for COVID-19 (principal) ==

== ENCOUNTER 2021-08-16 13:03 | Emergency (ER) | payer BC, OTHER ==
[2021-08-16 13:32] LABS: BASOPHILS % (AUTO) 0.4 % (0-1); EOSINOPHILS # (AUTO) 0.2 X10'3 (0-0.9); EOSINOPHILS % (AUTO) 2.6 % (0-6); HEMOGLOBIN 13.1 g/dl (12.0-16.0); LYMPHOCYTES % (AUTO) 36.8 % (21-51); MEAN CORPUSCULAR HEMOGLOBIN 28.8 PG (27.0-31.0); MEAN CORPUSCULAR HGB CONC 32.8 g/dL (33.0-36.5); MEAN CORPUSCULAR VOLUME 87.8 FL (78-98); MEAN PLATELET VOLUME 8.2 FL (7.4-10.4); MONOCYTES # (AUTO) 0.7 X10'3 (0-0.9); MONOCYTES % (AUTO) 9.1 % (2-12); NEUTROPHILS # (AUTO) 4.1 X10'3 (1.8-7.7); NEUTROPHILS % (AUTO) 51.1 % (42-75); PLATELET COUNT 351 X10'3 (140-440); RED BLOOD COUNT 4.56 X10'6 (4.20-5.60); RED CELL DISTRIBUTION WIDTH 13.9 % (11.5-14.5); WHITE BLOOD COUNT 8.1 X10'3 (4.5-11.0)
[2021-08-16 13:50] LABS: ALANINE AMINOTRANSFERASE 20 U/L (12-78); ALBUMIN 3.7 G/DL (3.4-5.0); ALKALINE PHOSPHATASE 92 IU/L (46-116); ANION GAP 8 (8-16); ASPARTATE AMINO TRANSFERASE 11 U/L (10-37); BILIRUBIN,TOTAL 0.2 MG/DL (0.1-1.0); BLOOD UREA NITROGEN 19 MG/DL (7-18); CALCIUM 8.9 MG/DL (8.5-10.1); CHLORIDE 104 MMOL/L (99-107); CREATININE 0.73 MG/DL (0.40-0.90); GLUCOSE 82 MG/DL (70-104); POTASSIUM 3.6 MMOL/L (3.5-5.1); SODIUM 139 MMOL/L (135-145); TOTAL CARBON DIOXIDE 26.8 MMOL/L (24-32); TOTAL PROTEIN 7.4 G/DL (6.4-8.2); eGFR 82 ML/MIN
[2021-08-16] MEDS ORDERED: nitroGLYCERIN 0.4mg SUBLingual tab SL PRN (14:10)
[2021-08-16] MEDS ORDERED: morphine 4 MG/ML inj SYRINge IM ONE (15:00)
[2021-08-16] MEDS ORDERED: ondansetron 4mg rapidly disintigrating tab PO ONE (15:00)
--- NOTE | 2021-08-16 15:48 | NUR ---
RELIEVING RN FOR BREAK, PT IS RESTING QUIETLY ON [employer], NO COMPLAINTS, PLAYING ON PHONE
[2021-08-16] MEDS ORDERED: diltiazem 5mg/ml 5ml inj. IV ONE (18:20)
[2021-08-16] MEDS ORDERED: fentaNYL/PF 50MCG/1 ML 2ML syringe IV ONE (19:35)
[2021-08-16 21:03] VITALS: BP 137/77
== END 2021-08-16 21:05 | disposition home or self-care (01) ==
LOC: ER 13:03
DX: R07.89 Other chest pain (principal); T50.B95A Adverse effect of other viral vaccines, initial encounter; E03.9 Hypothyroidism, unspecified; G89.29 Other chronic pain; F32.9 Major depressive disorder, single episode, unspecified; Z90.710 Acquired absence of both cervix and uterus; Z90.89 Acquired absence of other organs; Z98.890 Other specified postprocedural states; Z88.1 Allergy status to other antibiotic agents; Z88.8 Allergy status to other drugs, medicaments and biological substances; Z79.899 Other long term (current) drug therapy; Y92.89 Other specified places as the place of occurrence of the external cause
CPT/HCPCS: 36415; 71045; 80053; 83880; 84484; 85025; 93005; 96372; 96374; 96375; 99285; J2270; J3010; J3490

== ENCOUNTER 2021-12-13 14:27 | Emergency (ER) | payer BC, OTHER ==
[~2021-12-13] VITALS: Ht 154.9 cm; Wt 114.0 kg
[2021-12-13 15:01] VITALS: BP 154/88
[2021-12-13] MEDS ORDERED: LIDOcaine 1% W/epiNEPHrine 1:100,000 20ml vial SQ ONE (15:35)
== END 2021-12-13 17:26 | disposition home or self-care (01) ==
LOC: EEVIPCON 14:27 → ER 14:27
DX: S61.213A Laceration without foreign body of left middle finger without damage to nail, initial encounter (principal); E03.9 Hypothyroidism, unspecified; G89.29 Other chronic pain; F32.9 Major depressive disorder, single episode, unspecified; Z90.710 Acquired absence of both cervix and uterus; Z98.890 Other specified postprocedural states; Z90.89 Acquired absence of other organs; Z88.1 Allergy status to other antibiotic agents; Z88.8 Allergy status to other drugs, medicaments and biological substances; Z79.899 Other long term (current) drug therapy; X58.XXXA Exposure to other specified factors, initial encounter; Y93.89 Activity, other specified; Y92.89 Other specified places as the place of occurrence of the external cause; Y99.8 Other external cause status
CPT/HCPCS: 12001; 73130; 99283

== ENCOUNTER 2022-03-16 20:51 | Emergency (ER) | payer BC, OTHER ==
[~2022-03-16] VITALS: Ht 154.9 cm; Wt 113.6 kg
[2022-03-16 21:13] LABS: BASOPHILS # (AUTO) 0.1 X10'3 (0-0.2); BASOPHILS % (AUTO) 0.8 % (0-1); EOSINOPHILS # (AUTO) 0.2 X10'3 (0-0.9); EOSINOPHILS % (AUTO) 2.4 % (0-6); HEMATOCRIT 39.3 % (35.0-45.0); LYMPHOCYTES # (AUTO) 3.6 X10'3 (1.1-4.8); LYMPHOCYTES % (AUTO) 35.2 % (21-51); MEAN CORPUSCULAR HEMOGLOBIN 28.1 PG (27.0-31.0); MEAN CORPUSCULAR HGB CONC 33.1 g/dL (33.0-36.5); MEAN PLATELET VOLUME 8.2 FL (7.4-10.4); MONOCYTES # (AUTO) 0.9 X10'3 (0-0.9); MONOCYTES % (AUTO) 8.5 % (2-12); NEUTROPHILS # (AUTO) 5.5 X10'3 (1.8-7.7); NEUTROPHILS % (AUTO) 53.1 % (42-75); PLATELET COUNT 325 X10'3 (140-440); RED BLOOD COUNT 4.63 X10'6 (4.20-5.60); RED CELL DISTRIBUTION WIDTH 14.4 % (11.5-14.5); WHITE BLOOD COUNT 10.3 X10'3 (4.5-11.0)
[2022-03-16 21:31] LABS: APTT 29 SECONDS (22-32)
[2022-03-16 21:33] LABS: ALANINE AMINOTRANSFERASE 16 U/L (12-78); ALBUMIN/GLOBULIN RATIO 1.1 (1.1-1.5); ALKALINE PHOSPHATASE 90 IU/L (46-116); ANION GAP 9 (8-16); ASPARTATE AMINO TRANSFERASE 13 U/L (10-37); BILIRUBIN,TOTAL 0.2 MG/DL (0.1-1.0); BLOOD UREA NITROGEN 15 MG/DL (7-18); BUN/CREATININE RATIO 19.2 (6.6-38.0); CALCIUM 9.4 MG/DL (8.5-10.1); CHLORIDE 103 MMOL/L (99-107); CREATININE 0.78 MG/DL (0.40-0.90); GLUCOSE 159 MG/DL (70-104); POTASSIUM 3.6 MMOL/L (3.5-5.1); SODIUM 139 MMOL/L (135-145); TOTAL CARBON DIOXIDE 26.9 MMOL/L (24-32); TOTAL PROTEIN 7.7 G/DL (6.4-8.2); eGFR 76 ML/MIN
[2022-03-16] MEDS ORDERED: VALA10002 PO (21:50)
[2022-03-16] MEDS ORDERED: PRED20TA PO (21:50)
[2022-03-16] MEDS ORDERED: predniSONE 20 mg tablet PO ONE ×2 (21:55→23:05)
[2022-03-16] MEDS ORDERED: valacyclovir 500mg tablet PO SCH (21:55)
[2022-03-16 23:17] VITALS: BP 140/62
== END 2022-03-16 23:23 | disposition home or self-care (01) ==
LOC: ER 20:52
DX: G51.0 Bell's palsy (principal); E06.9 Thyroiditis, unspecified; G89.29 Other chronic pain; M54.9 Dorsalgia, unspecified; F32.A Depression, unspecified; Z88.1 Allergy status to other antibiotic agents; Z88.8 Allergy status to other drugs, medicaments and biological substances; Z79.899 Other long term (current) drug therapy
CPT/HCPCS: 36415; 70450; 71045; 80053; 82948; 85025; 85610; 85730; 86885; 86900; 86901; 93005; 99285; J7512

== ENCOUNTER 2022-06-14 14:07 | Emergency (ER) | payer BC, OTHER ==
[~2022-06-14] VITALS: Ht 154.9 cm; Wt 111.4 kg
[~2022-06-14 14:07] MED LIST changes: +VALA10002 PO
[2022-06-14 14:42] LABS: BASOPHILS # (AUTO) 0.1 X10'3 (0-0.2); BASOPHILS % (AUTO) 0.7 % (0-1); EOSINOPHILS # (AUTO) 0.2 X10'3 (0-0.9); EOSINOPHILS % (AUTO) 2.4 % (0-6); HEMATOCRIT 38.5 % (35.0-45.0); LYMPHOCYTES # (AUTO) 3.5 X10'3 (1.1-4.8); LYMPHOCYTES % (AUTO) 36.8 % (21-51); MEAN CORPUSCULAR HEMOGLOBIN 28.9 PG (27.0-31.0); MEAN CORPUSCULAR HGB CONC 33.7 g/dL (33.0-36.5); MEAN CORPUSCULAR VOLUME 85.7 FL (78-98); MEAN PLATELET VOLUME 8.2 FL (7.4-10.4); MONOCYTES # (AUTO) 0.8 X10'3 (0-0.9); MONOCYTES % (AUTO) 8.2 % (2-12); NEUTROPHILS % (AUTO) 51.9 % (42-75); PLATELET COUNT 335 X10'3 (140-440); RED CELL DISTRIBUTION WIDTH 14.8 % (11.5-14.5); WHITE BLOOD COUNT 9.6 X10'3 (4.5-11.0)
[2022-06-14 15:10] LABS: ALANINE AMINOTRANSFERASE 22 U/L (12-78); ALBUMIN 3.8 G/DL (3.4-5.0); ALKALINE PHOSPHATASE 80 IU/L (46-116); ANION GAP 10 (8-16); ASPARTATE AMINO TRANSFERASE 15 U/L (10-37); BILIRUBIN,TOTAL 0.2 MG/DL (0.1-1.0); BLOOD UREA NITROGEN 12 MG/DL (7-18); BUN/CREATININE RATIO 20.3 (6.6-38.0); CALCIUM 9.5 MG/DL (8.5-10.1); CHLORIDE 105 MMOL/L (99-107); CREATININE 0.59 MG/DL (0.40-0.90); GLUCOSE 90 MG/DL (70-104); POTASSIUM 3.9 MMOL/L (3.5-5.1); SODIUM 141 MMOL/L (135-145); TOTAL CARBON DIOXIDE 26.3 MMOL/L (24-32); TOTAL PROTEIN 7.7 G/DL (6.4-8.2); eGFR > 90 ML/MIN
[2022-06-14] MEDS ORDERED: iohexol 350MG/ML 100ml bottle IV ONE (15:44)
[2022-06-14 17:00] VITALS: BP 156/82
== END 2022-06-14 17:03 | disposition home or self-care (01) ==
LOC: ER 14:07 → EEVIPCON 14:07 → ER 17:03
DX: R07.89 Other chest pain (principal); R05.9 Cough, unspecified; I25.2 Old myocardial infarction; G47.30 Sleep apnea, unspecified; E03.9 Hypothyroidism, unspecified; G89.29 Other chronic pain; F32.9 Major depressive disorder, single episode, unspecified; Z90.710 Acquired absence of both cervix and uterus; Z90.89 Acquired absence of other organs; Z98.890 Other specified postprocedural states; Z88.1 Allergy status to other antibiotic agents; Z88.8 Allergy status to other drugs, medicaments and biological substances; Z79.899 Other long term (current) drug therapy
CPT/HCPCS: 36415; 71045; 71275; 80053; 83880; 84145; 84484; 85025; 93005; 99285; J3490; Q9967

== ENCOUNTER 2022-09-17 12:00 | Emergency (ER) | payer BC, OTHER ==
[~2022-09-17] VITALS: Ht 154.9 cm; Wt 118.2 kg
[2022-09-17 12:37] LABS: BASOPHILS # (AUTO) 0.1 X10'3 (0-0.2); EOSINOPHILS # (AUTO) 0.2 X10'3 (0-0.9); EOSINOPHILS % (AUTO) 2.1 % (0-6); HEMATOCRIT 36.7 % (35.0-45.0); HEMOGLOBIN 12.1 g/dl (12.0-16.0); LYMPHOCYTES # (AUTO) 2.8 X10'3 (1.1-4.8); LYMPHOCYTES % (AUTO) 32.8 % (21-51); MEAN CORPUSCULAR HEMOGLOBIN 28.5 PG (27.0-31.0); MEAN CORPUSCULAR VOLUME 86.3 FL (78-98); MEAN PLATELET VOLUME 8.3 FL (7.4-10.4); MONOCYTES # (AUTO) 0.8 X10'3 (0-0.9); MONOCYTES % (AUTO) 9.7 % (2-12); NEUTROPHILS # (AUTO) 4.7 X10'3 (1.8-7.7); NEUTROPHILS % (AUTO) 54.4 % (42-75); PLATELET COUNT 328 X10'3 (140-440); RED BLOOD COUNT 4.26 X10'6 (4.20-5.60); RED CELL DISTRIBUTION WIDTH 14.8 % (11.5-14.5); WHITE BLOOD COUNT 8.7 X10'3 (4.5-11.0)
[2022-09-17 12:57] LABS: ALANINE AMINOTRANSFERASE 25 U/L (12-78); ALBUMIN 3.6 G/DL (3.4-5.0); ALBUMIN/GLOBULIN RATIO 1.1 (1.1-1.5); ALKALINE PHOSPHATASE 82 IU/L (46-116); ANION GAP 10 (8-16); ASPARTATE AMINO TRANSFERASE 14 U/L (10-37); BILIRUBIN,TOTAL 0.2 MG/DL (0.1-1.0); BLOOD UREA NITROGEN 14 MG/DL (7-18); BUN/CREATININE RATIO 20.9 (6.6-38.0); CALCIUM 9.2 MG/DL (8.5-10.1); CHLORIDE 105 MMOL/L (99-107); CREATININE 0.67 MG/DL (0.40-0.90); GLUCOSE 102 MG/DL (70-104); POTASSIUM 3.9 MMOL/L (3.5-5.1); SODIUM 143 MMOL/L (135-145); TOTAL CARBON DIOXIDE 27.6 MMOL/L (24-32); eGFR > 90 ML/MIN
[2022-09-17 15:27] VITALS: BP 131/78
== END 2022-09-17 15:29 | disposition home or self-care (01) ==
LOC: ER 12:01
DX: R60.0 Localized edema (principal); R07.89 Other chest pain; I25.2 Old myocardial infarction; E03.9 Hypothyroidism, unspecified; G89.29 Other chronic pain; F32.9 Major depressive disorder, single episode, unspecified; G47.30 Sleep apnea, unspecified; Z90.710 Acquired absence of both cervix and uterus; Z98.890 Other specified postprocedural states; Z90.89 Acquired absence of other organs; Z88.1 Allergy status to other antibiotic agents; Z88.8 Allergy status to other drugs, medicaments and biological substances; Z79.899 Other long term (current) drug therapy
CPT/HCPCS: 36415; 71045; 80053; 83880; 84484; 85025; 85379; 93005; 93970; 99285

== ENCOUNTER → 2022-12-06 | Outpatient (CLI) | payer BC ==
[2022-12-06 11:41] LABS: BASOPHILS # (AUTO) 0.1 X10'3 (0-0.2); BASOPHILS % (AUTO) 0.9 % (0-1); EOSINOPHILS # (AUTO) 0.2 X10'3 (0-0.9); EOSINOPHILS % (AUTO) 1.7 % (0-6); HEMATOCRIT 38.8 % (35.0-45.0); HEMOGLOBIN 12.7 g/dl (12.0-16.0); LYMPHOCYTES % (AUTO) 31.9 % (21-51); MEAN CORPUSCULAR HEMOGLOBIN 28.4 PG (27.0-31.0); MEAN CORPUSCULAR HGB CONC 32.7 g/dL (33.0-36.5); MEAN CORPUSCULAR VOLUME 86.8 FL (78-98); MEAN PLATELET VOLUME 8.4 FL (7.4-10.4); MONOCYTES # (AUTO) 0.7 X10'3 (0-0.9); MONOCYTES % (AUTO) 7.3 % (2-12); NEUTROPHILS # (AUTO) 5.5 X10'3 (1.8-7.7); NEUTROPHILS % (AUTO) 58.2 % (42-75); PLATELET COUNT 342 X10'3 (140-440); RED BLOOD COUNT 4.47 X10'6 (4.20-5.60); RED CELL DISTRIBUTION WIDTH 14.8 % (11.5-14.5); WHITE BLOOD COUNT 9.4 X10'3 (4.5-11.0)
[2022-12-06 12:05] LABS: ALANINE AMINOTRANSFERASE 29 U/L (12-78); ALBUMIN/GLOBULIN RATIO 1.1 (1.1-1.5); ALKALINE PHOSPHATASE 91 IU/L (46-116); ANION GAP 8 (8-16); ASPARTATE AMINO TRANSFERASE 16 U/L (10-37); BILIRUBIN,TOTAL 0.3 MG/DL (0.1-1.0); BLOOD UREA NITROGEN 14 MG/DL (7-18); BUN/CREATININE RATIO 19.4 (6.6-38.0); CALCIUM 9.5 MG/DL (8.5-10.1); CHLORIDE 103 MMOL/L (99-107); CHOL/HDL RATIO 4.7 (0.00-4.99); CHOLESTEROL 211 MG/DL (0-200); CREATININE 0.72 MG/DL (0.40-0.90); GLUCOSE 109 MG/DL (70-104); HDL CHOLESTEROL 45 MG/DL (35-60); LDL CHOLESTEROL 120 MG/DL (50-100); POTASSIUM 3.9 MMOL/L (3.5-5.1); SODIUM 139 MMOL/L (135-145); TOTAL CARBON DIOXIDE 28.3 MMOL/L (24-32); TOTAL PROTEIN 7.6 G/DL (6.4-8.2); TRIGLYCERIDES 272 MG/DL (20-135); eGFR 83 ML/MIN
== END | disposition home or self-care (01) ==
LOC: LAB 10:54
PROVIDERS: ATTEND Family Medicine
DX: Z00.00 Encounter for general adult medical examination without abnormal findings (principal); E06.3 Autoimmune thyroiditis; E66.01 Morbid (severe) obesity due to excess calories; G47.33 Obstructive sleep apnea (adult) (pediatric)
CPT/HCPCS: 36415; 80053; 80061; 84443; 85025

== ENCOUNTER 2023-02-05 07:54 | Outpatient (CLI) | payer BC ==
[2023-02-05] VITALS (8 sets, daily range): BP systolic 116–145; BP diastolic 64–78
[~2023-02-05] VITALS: Ht 154.9 cm; Wt 118.0 kg
[2023-02-05] MEDS ORDERED: regadenoson 0.4mg/5ml syringe IV ONE (09:10)
[2023-02-05] MEDS ORDERED: nitroGLYCERIN 0.4mg SUBLingual tab SL PRN (09:20)
[2023-02-05] MEDS ORDERED: aminophylline 250mg/10ml inj. IV PRN (09:20)
[2023-02-05] MEDS ORDERED: normal saline 500ml IV soln 500 ML IV ONE (09:20)
== END 2023-02-05 23:59 | disposition home or self-care (01) ==
LOC: RAD 07:54
PROVIDERS: ATTEND Internal Medicine Cardiovascular Disease
DX: I25.10 Atherosclerotic heart disease of native coronary artery without angina pectoris (principal)
CPT/HCPCS: 78452; 93017; A9500; J2785; J7040; J0280

== ENCOUNTER 2023-06-13 05:16 | Inpatient (IN) | payer BC ==
[2023-06-05 16:10] LABS: BASOPHILS # (AUTO) 0.1 X10'3 (0-0.2); BASOPHILS % (AUTO) 0.7 % (0-1); EOSINOPHILS # (AUTO) 0.2 X10'3 (0-0.9); LYMPHOCYTES # (AUTO) 2.8 X10'3 (1.1-4.8); LYMPHOCYTES % (AUTO) 26.8 % (21-51); MEAN CORPUSCULAR HEMOGLOBIN 28.7 PG (27.0-31.0); MEAN CORPUSCULAR HGB CONC 32.9 g/dL (33.0-36.5); MEAN CORPUSCULAR VOLUME 87.3 FL (78-98); MEAN PLATELET VOLUME 8.4 FL (7.4-10.4); MONOCYTES # (AUTO) 0.7 X10'3 (0-0.9); MONOCYTES % (AUTO) 7.1 % (2-12); NEUTROPHILS # (AUTO) 6.5 X10'3 (1.8-7.7); NEUTROPHILS % (AUTO) 63.4 % (42-75); PRE OP HEMATOCRIT 40.1 % (35.0-45.0); PRE OP HEMOGLOBIN 13.2 g/dL (12.0-16.0); PRE OP PLATELET COUNT 310 X10'3 (140-440); RED CELL DISTRIBUTION WIDTH 14.1 % (11.5-14.5)
[2023-06-05 16:41] LABS: ALBUMIN/GLOBULIN RATIO 1.1 (1.1-1.5); ALKALINE PHOSPHATASE 90 IU/L (46-116); BLOOD UREA NITROGEN 15 MG/DL (7-18); BUN/CREATININE RATIO 20.3 (10.0-20.0); CALCIUM 9.5 MG/DL (8.5-10.1); CHLORIDE 103 MMOL/L (99-107); CREATININE 0.74 MG/DL (0.40-0.90); PRE OP ALT 23 U/L (30-65); PRE OP ANION GAP 10 (8-16); PRE OP AST 17 U/L (10-37); PRE OP BILIRUB, TOTAL 0.2 MG/DL (0.0-1.0); PRE OP GLUCOSE 92 MG/DL (70-104); PRE OP POTASSIUM 3.7 MMOL/L (3.4-5.1); PRE OP SODIUM 141 MMOL/L (135-145); TOTAL CARBON DIOXIDE 28.4 MMOL/L (24-32); TOTAL PROTEIN 7.7 G/DL (6.4-8.2); eGFR 81 ML/MIN
[2023-06-13] VITALS (33 sets, daily range): BP systolic 78–147; BP diastolic 35–101; PULSE 51–82; RESP 9–20; TEMP 97.1–99.6; O2SAT 91–99
[~2023-06-13] VITALS: Ht 154.9 cm; Wt 114.8 kg
[~2023-06-13 05:16] MED LIST changes: +ASCO-139 PO; +CHOL200074 PO; +DOCU-148 PO; -GABA600T13 PO; +NAPR220C15 PO; +TRIA10.8 BOTHNARES; -VALA10002 PO
[2023-06-13] MEDS ORDERED: gabapentin 300mg capsule PO ONE (05:30)
[2023-06-13] MEDS ORDERED: oxyCODONE SR 10mg (sust. release) tab PO ONE (05:30)
[2023-06-13] MEDS ORDERED: celeCOXIB 100mg capsule PO ONE (05:30)
[2023-06-13] MEDS ORDERED: acetaminophen 325mg tablet PO ONE (05:30)
[2023-06-13] MEDS ORDERED: metoclopramide 5 mg/ml inj IV ONE (05:30)
[2023-06-13] MEDS ORDERED: famotidine 20mg tablet PO ONE (05:30)
[2023-06-13] MEDS ORDERED: GENTAMICIN IV ONE (06:00)
[2023-06-13] MEDS ORDERED: TRANEXAMIC ACID IV ONE (06:00)
[2023-06-13] MEDS ORDERED: NORMAL SALINE IV ONE ×2 (06:00)
[2023-06-13] MEDS ORDERED: cefazolin 2gm/D5W 100mL 100 ML IV ONE (06:12)
[2023-06-13] MEDS ORDERED: HYDROcodone/acetaminophen 10/325mg tab PO PRN (06:30)
[2023-06-13] MEDS ORDERED: naloxone 0.4 mg/ml inj IV PRN (06:30)
[2023-06-13] MEDS ORDERED: bisacodyl 10mg suppository rectal RC PRN (06:30)
[2023-06-13] MEDS ORDERED: ondansetron/PF 4mg/2ml inj IV PRN ×2 (06:30→08:40)
[2023-06-13] MEDS ORDERED: HYDROmorphone 1 mg/ml syringe IV PRN (06:30)
[2023-06-13] MEDS ORDERED: magnesium hydroxide 30ml (MOM) UD suspension PO PRN (06:30)
[2023-06-13] MEDS ORDERED: diphenhydrAMINE 25mg capsule PO PRN ×2 (06:30)
[2023-06-13] MEDS ORDERED: HYDROmorphone inj. 0.5 MG/0.5 ML DISP.SYRIN IV PRN ×2 (06:30→16:30)
[2023-06-13] MEDS: potassium cl 20mEq in 1/2 NS 1,000 ML IV SCH ×3 (06:30→22:30)
[2023-06-13] MEDS ORDERED: fluticasone nasal spray 16GM bottle NS PRN (06:30)
[2023-06-13] MEDS ORDERED: epiNEPHrine 1 mg/ml inj ONE (06:44)
[2023-06-13] MEDS ORDERED: cloNIDine hcl/PF 100mcg/ml inj ONE (06:44)
[2023-06-13] MEDS ORDERED: vancomycin 1,000mg inj ONE (06:46)
[2023-06-13] MEDS ORDERED: ROPIVAcaine 0.5% (5mg/ml) 30ml vial ONE ×2 (06:46→07:52)
[2023-06-13] MEDS: ringers solution, lacted 1,000 ML IV SCH ×2 (06:47→12:24)
[2023-06-13] MEDS: aspirin 325mg tablet PO SCH (07:03)
[2023-06-13] MEDS ORDERED: LIDOcaine 1% (10mg/ml) 2ml vial ONE (07:16)
[2023-06-13] MEDS ORDERED: fentaNYL/PF 50MCG/1 ML 2ML syringe ONE (07:32)
[2023-06-13] MEDS ORDERED: MIDAZolam 1 MG/ML 5ML VIAL ONE ×2 (07:32→08:17)
[2023-06-13] MEDS ORDERED: LIDOcaine 1% (10mg/ml) 2ml vial SQ ONE (07:50)
[2023-06-13] MEDS ORDERED: propofol inj 20 ML IV ONE (07:51)
[2023-06-13] MEDS ORDERED: LIDOcaine 1%/PF 5ML 10 MG/ML VIAL ONE (07:51)
[2023-06-13] MEDS: docusate sod 100mg capsule PO SCH ×2 (08:00→19:19)
[2023-06-13] MEDS: multivitamins, therapeutics tablet PO SCH (08:00)
[2023-06-13] MEDS ORDERED: meperidine/PF 25mg/ml syringe IV PRN ×3 (08:40)
[2023-06-13] MEDS ORDERED: proCHLORperazine 10 MG/2 ml inj IV PRN (08:40)
[2023-06-13] MEDS ORDERED: morphine 4 MG/ML inj SYRINge IV PRN (08:40)
[2023-06-13] MEDS ORDERED: morphine 2 MG/ML inj. syringe IV PRN (08:40)
[2023-06-13] MEDS ORDERED: ROPIVAcaine 0.2% (10 MG/5 ML) BOLUS INJECTION ADDCANAL PRN (08:40)
[2023-06-13] MEDS ORDERED: ringers solution, lacted 1,000 ML IV SCH (08:40)
[2023-06-13] MEDS ORDERED: BUPIVAcaine/PF 7.5mg/ml (0.75%) 10ml vial ONE (08:54)
--- NOTE | 2023-06-13 09:28 | NUR ---
PATIENT ARRIVED FROM OR ON HOSPITAL BED ACCOMPANIED BY ANESTHESIA, DR. BURRELL. REPORT GIVEN BY BEDSIDE NURSE, SCARLET. PATIENT AWAKES ON VERBAL COMMAND AND ANSWERS QUESTIONS, DENIES PAIN. SPINAL BLOCK ADMINISTERED INTRAOP, PATIENT ARRIVES HYPOTENSIVE WITH MD AWARE. ORDER TO GIVE LR BOLUS OF 500ML FOR BP 82/46. PIV TO RIGHT ANTECUBITAL 20G. RIGHT KNEE WITH ISLAND DRESSING, CANNON SLEEVE AND COLD PACK. PATIENT HAS DULL SENSATION TO RIGHT FOOT WITH PALPABLE PULSES. PER DR. MORRIS REQUEST, PLACE 2L NC.
[2023-06-13] MEDS ORDERED: ringers solution, lacted 1,000 ML IV ONE (09:45)
[2023-06-13] MEDS: ROPIVAcaine 0.2%/PF PUMP/bolus 545 ML ADDCANAL SCH (10:54)
[2023-06-13] MEDS ORDERED: acetaminophen 325mg tablet PO PRN (12:00)
[2023-06-13] MEDS ORDERED: tranexamic acid inj. 1,150 MG in normal saline 100ml IV soln 88.5 ML IV ONE (12:30)
[2023-06-13] MEDS: HYDROcodone/acetaminophen 10/325mg tab PO PRN ×3 (12:49→22:19)
--- NOTE | 2023-06-13 12:58 | NUR ---
PATIENT MEETS DISCHARGE CRITERIA FROM RECOVER. PAIN MANAGEABLE. VSS. CPAP AND IS SENT WITH PATIENT TO ROOM 4018, PATIENT STATES REST OF BELONGINGS ARE WITH .
[2023-06-13] MEDS: gabapentin 300mg capsule PO SCH ×2 (13:28→20:14)
[2023-06-13] MEDS: GENTAMICIN IV SCH ×2 (16:11→22:20)
[2023-06-13] MEDS: NORMAL SALINE IV SCH ×2 (16:11→22:20)
[2023-06-13] MEDS: HYDROmorphone 1 mg/ml syringe IV PRN ×3 (17:01→21:47)
[2023-06-13] MEDS: cefazolin 2gm/D5W 100mL 100 ML IV SCH ×2 (17:04→23:47)
[2023-06-13] MEDS: ascorbic acid 500mg tablet PO SCH (19:18)
[2023-06-13] MEDS: sennosides 8.6mg tablet PO SCH (20:14)
[2023-06-13] MEDS: traZODone 50mg tablet PO SCH (20:14)
--- NOTE | 2023-06-13 22:18 | NUR ---
Pt refusing PO pain meds as first option, requesting PO meds after IV pain meds
[2023-06-14] MEDS: HYDROmorphone 1 mg/ml syringe IV PRN ×8 (01:15→21:55)
--- NOTE | 2023-06-14 01:15 | NUR ---
pt refusing po pain meds at this time
[2023-06-14 02:00] VITALS: BP 115/57; PULSE 87; RESP 16; TEMP 97.3; O2SAT 97
--- NOTE | 2023-06-14 03:25 | NUR ---
Patient in room ORTHO 4018. I have received report from Chelsey BEDOLLA and had the opportunity to ask questions and assume patient care.
[2023-06-14] MEDS: potassium cl 20mEq in 1/2 NS 1,000 ML IV SCH ×3 (03:34→22:30)
[2023-06-14] MEDS: HYDROcodone/acetaminophen 10/325mg tab PO PRN ×5 (04:09→21:13)
[2023-06-14 06:00] VITALS: BP 114/68; PULSE 77; RESP 16; TEMP 97.6; O2SAT 98
--- NOTE | 2023-06-14 06:20 | NUR ---
Problems reprioritized. Patient report given, questions answered & plan of care reviewed with Morenita BEDOLLA.
--- NOTE | 2023-06-14 06:25 | NUR ---
Patient in room ORTHO 4018. I have received report from Shira and had the opportunity to ask questions and assume patient care.
[2023-06-14] MEDS: cefazolin 2gm/D5W 100mL 100 ML IV SCH (06:52)
[2023-06-14] MEDS: pantoprazole 40mg Tablet.DR PO SCH (06:53)
[2023-06-14] MEDS: levoTHYROXINE 25mcg tablet PO SCH (06:53)
[2023-06-14 07:53] LABS: BASOPHILS # (AUTO) 0.1 X10'3 (0-0.2); BASOPHILS % (AUTO) 0.4 % (0-1); EOSINOPHILS % (AUTO) 0.2 % (0-6); HEMATOCRIT 33.6 % (35.0-45.0); HEMOGLOBIN 10.9 g/dl (12.0-16.0); LYMPHOCYTES % (AUTO) 15.1 % (21-51); MEAN CORPUSCULAR HEMOGLOBIN 28.9 PG (27.0-31.0); MEAN CORPUSCULAR HGB CONC 32.5 g/dL (33.0-36.5); MEAN CORPUSCULAR VOLUME 88.9 FL (78-98); MEAN PLATELET VOLUME 8.9 FL (7.4-10.4); MONOCYTES % (AUTO) 7.7 % (2-12); NEUTROPHILS # (AUTO) 10.2 X10'3 (1.8-7.7); NEUTROPHILS % (AUTO) 76.6 % (42-75); PLATELET COUNT 289 X10'3 (140-440); RED BLOOD COUNT 3.78 X10'6 (4.20-5.60); RED CELL DISTRIBUTION WIDTH 14.4 % (11.5-14.5); WHITE BLOOD COUNT 13.3 X10'3 (4.5-11.0)
[2023-06-14 08:08] LABS: ANION GAP 11 (8-16); CHLORIDE 102 MMOL/L (99-107); POTASSIUM 4.2 MMOL/L (3.5-5.1); SODIUM 141 MMOL/L (135-145); TOTAL CARBON DIOXIDE 28.5 MMOL/L (24-32)
[2023-06-14] MEDS: gabapentin 300mg capsule PO SCH ×3 (08:09→21:10)
[2023-06-14] MEDS: multivitamins, therapeutics tablet PO SCH (08:09)
[2023-06-14] MEDS: NORMAL SALINE IV SCH (08:09)
[2023-06-14] MEDS: diltiazem CD 120mg capsule (once-daily) PO SCH (08:09)
[2023-06-14] MEDS: GENTAMICIN IV SCH (08:09)
[2023-06-14] MEDS: ascorbic acid 500mg tablet PO SCH ×2 (08:09→21:12)
[2023-06-14] MEDS: venlafaxine XR 75mg capsule (Q24H) PO SCH (08:10)
[2023-06-14] MEDS: docusate sod 100mg capsule PO SCH ×2 (08:10→21:13)
[2023-06-14] MEDS: aspirin 325mg tablet PO SCH (08:10)
[2023-06-14 10:00] VITALS: BP 135/61; PULSE 87; RESP 18; TEMP 97.3; O2SAT 96
--- NOTE | 2023-06-14 11:13 | NUR ---
Joint surgery consult: Pt s/p knee surgery per EMR. Pt seen at bedside and provided written/verbal high protein nutrition education of which pt was very familiar with. RD contact also provided and encouraged to reach out for any nutrition question or concerns. Addendum: 06/14/23 at [address] Amended: Links added.
[2023-06-14] MEDS: cetirizine 10mg tablet PO SCH (12:00)
[2023-06-14 18:00] VITALS: BP 138/73; PULSE 77; RESP 18; TEMP 97.5; O2SAT 96
--- NOTE | 2023-06-14 18:27 | NUR ---
Problems reprioritized. Patient report given, questions answered & plan of care reviewed with
--- NOTE | 2023-06-14 18:45 | NUR ---
Patient in room ORTHO 4018. I have received report from Tanja BEDOLLA and had the opportunity to ask questions and assume patient care.
[2023-06-14] MEDS: ROPIVAcaine 0.2%/PF PUMP/bolus 545 ML ADDCANAL SCH (19:44)
[2023-06-14] MEDS: celeCOXIB 100mg capsule PO SCH (21:12)
[2023-06-14] MEDS: traZODone 50mg tablet PO SCH (21:13)
[2023-06-14] MEDS: sennosides 8.6mg tablet PO SCH (21:13)
[2023-06-14 22:00] VITALS: BP 151/79; PULSE 79; RESP 16; TEMP 97.2; O2SAT 97
[2023-06-15] MEDS: HYDROmorphone 1 mg/ml syringe IV PRN ×6 (00:11→22:09)
[2023-06-15] MEDS: HYDROcodone/acetaminophen 10/325mg tab PO PRN (01:56)
--- NOTE | 2023-06-15 04:21 | NUR ---
Have educated throughout the night to have the FOB elevated and HOB flat and to keep leg straight with pillow to decrease swelling and pain. Also to use powder packs and not ice packs since it leaked onto her knee sleeve and we had to change out the knee wrap earlier in shift. The OnQ ball was replaced earlier in shift too. Agree with Analisa Elizabeth LVN orientee documentation except where I added my findings.
--- NOTE | 2023-06-15 04:52 | NUR ---
Have reviewed Ayan's documentation of charting and medications since I precepted him tonight and agree with them.
[2023-06-15 06:35] LABS: BASOPHILS # (AUTO) 0.1 X10'3 (0-0.2); BASOPHILS % (AUTO) 0.6 % (0-1); EOSINOPHILS # (AUTO) 0.2 X10'3 (0-0.9); EOSINOPHILS % (AUTO) 2.1 % (0-6); HEMOGLOBIN 10.2 g/dl (12.0-16.0); LYMPHOCYTES # (AUTO) 2.7 X10'3 (1.1-4.8); LYMPHOCYTES % (AUTO) 22.7 % (21-51); MEAN CORPUSCULAR HEMOGLOBIN 28.8 PG (27.0-31.0); MEAN CORPUSCULAR HGB CONC 32.7 g/dL (33.0-36.5); MEAN PLATELET VOLUME 9.2 FL (7.4-10.4); MONOCYTES # (AUTO) 1.2 X10'3 (0-0.9); MONOCYTES % (AUTO) 10.3 % (2-12); NEUTROPHILS # (AUTO) 7.6 X10'3 (1.8-7.7); NEUTROPHILS % (AUTO) 64.3 % (42-75); PLATELET COUNT 266 X10'3 (140-440); RED BLOOD COUNT 3.53 X10'6 (4.20-5.60); RED CELL DISTRIBUTION WIDTH 14.5 % (11.5-14.5); WHITE BLOOD COUNT 11.7 X10'3 (4.5-11.0)
[2023-06-15 08:00] VITALS: RESP 14; O2SAT 97
[2023-06-15] MEDS ORDERED: oxyCODONE/APAP 5-325mg tablet PO PRN (08:05)
[2023-06-15] MEDS: pantoprazole 40mg Tablet.DR PO SCH (08:25)
[2023-06-15] MEDS: gabapentin 300mg capsule PO SCH ×3 (08:25→20:47)
[2023-06-15] MEDS: cetirizine 10mg tablet PO SCH (08:26)
[2023-06-15] MEDS: celeCOXIB 100mg capsule PO SCH ×2 (08:26→20:47)
[2023-06-15] MEDS: docusate sod 100mg capsule PO SCH ×2 (08:26→20:48)
[2023-06-15] MEDS: aspirin 325mg tablet PO SCH (08:26)
[2023-06-15] MEDS: oxyCODONE/APAP 5-325mg tablet PO PRN ×4 (08:26→23:26)
[2023-06-15] MEDS: diltiazem CD 120mg capsule (once-daily) PO SCH (08:26)
[2023-06-15] MEDS: ascorbic acid 500mg tablet PO SCH ×2 (08:27→20:47)
[2023-06-15] MEDS: levoTHYROXINE 25mcg tablet PO SCH (08:27)
[2023-06-15] MEDS: multivitamins, therapeutics tablet PO SCH (08:27)
[2023-06-15] MEDS: venlafaxine XR 75mg capsule (Q24H) PO SCH (08:27)
[2023-06-15 18:00] VITALS: BP 144/67; PULSE 84; RESP 18; TEMP 99.4; O2SAT 99
--- NOTE | 2023-06-15 18:06 | NUR ---
Problems reprioritized. Patient report given, questions answered & plan of care reviewed with jose luis carter.
--- NOTE | 2023-06-15 18:15 | NUR ---
Patient in room ORTHO 4018. I have received report from GRAEME Barbosa and had the opportunity to ask questions and assume patient care.
[2023-06-15 19:00] VITALS: RESP 16; O2SAT 96
[2023-06-15] MEDS: traZODone 50mg tablet PO SCH (20:48)
[2023-06-15] MEDS: sennosides 8.6mg tablet PO SCH (20:48)
[2023-06-15] MEDS ORDERED: LORazepam 0.5 MG tablet PO PRN (20:55)
[2023-06-15 22:00] VITALS: BP 133/56; PULSE 82; RESP 16; TEMP 99.2; O2SAT 99
[2023-06-16] MEDS: HYDROmorphone 1 mg/ml syringe IV PRN (00:14)
[2023-06-16] MEDS: oxyCODONE/APAP 5-325mg tablet PO PRN ×3 (05:07→13:59)
[2023-06-16 06:43] LABS: BASOPHILS # (AUTO) 0.1 X10'3 (0-0.2); BASOPHILS % (AUTO) 0.7 % (0-1); EOSINOPHILS # (AUTO) 0.3 X10'3 (0-0.9); EOSINOPHILS % (AUTO) 3.4 % (0-6); HEMATOCRIT 29.3 % (35.0-45.0); HEMOGLOBIN 9.7 g/dl (12.0-16.0); LYMPHOCYTES # (AUTO) 1.9 X10'3 (1.1-4.8); LYMPHOCYTES % (AUTO) 24.3 % (21-51); MEAN CORPUSCULAR HEMOGLOBIN 29.2 PG (27.0-31.0); MEAN CORPUSCULAR HGB CONC 33.1 g/dL (33.0-36.5); MEAN CORPUSCULAR VOLUME 88.1 FL (78-98); MEAN PLATELET VOLUME 8.7 FL (7.4-10.4); MONOCYTES # (AUTO) 0.8 X10'3 (0-0.9); MONOCYTES % (AUTO) 9.9 % (2-12); NEUTROPHILS # (AUTO) 4.8 X10'3 (1.8-7.7); NEUTROPHILS % (AUTO) 61.7 % (42-75); PLATELET COUNT 250 X10'3 (140-440); RED BLOOD COUNT 3.32 X10'6 (4.20-5.60); RED CELL DISTRIBUTION WIDTH 14.6 % (11.5-14.5); WHITE BLOOD COUNT 7.7 X10'3 (4.5-11.0)
[2023-06-16 07:00] VITALS: RESP 16; O2SAT 96
[2023-06-16] MEDS ORDERED: cyclobenzaprine 10mg tablet PO PRN (07:40)
[2023-06-16] MEDS: venlafaxine XR 75mg capsule (Q24H) PO SCH (07:59)
[2023-06-16] MEDS: aspirin 325mg tablet PO SCH (07:59)
[2023-06-16] MEDS: gabapentin 300mg capsule PO SCH ×2 (08:00→12:40)
[2023-06-16] MEDS: celeCOXIB 100mg capsule PO SCH (08:00)
[2023-06-16] MEDS: docusate sod 100mg capsule PO SCH (08:01)
[2023-06-16] MEDS: pantoprazole 40mg Tablet.DR PO SCH (08:01)
[2023-06-16] MEDS: cetirizine 10mg tablet PO SCH (08:01)
[2023-06-16] MEDS: multivitamins, therapeutics tablet PO SCH (08:01)
[2023-06-16] MEDS: levoTHYROXINE 25mcg tablet PO SCH (08:01)
[2023-06-16] MEDS: diltiazem CD 120mg capsule (once-daily) PO SCH (08:02)
[2023-06-16] MEDS: ascorbic acid 500mg tablet PO SCH (08:02)
[2023-06-16] MEDS: ROPIVAcaine 0.2%/PF PUMP/bolus 545 ML ADDCANAL SCH (09:31)
[2023-06-16 14:59] VITALS: RESP 14
--- NOTE | 2023-06-16 16:33 | NUR ---
Patient discharged in stable condition to home with . Iv removed tip intact no complications. Belongings sent with pt. Pt educated on discharge instructions including picco dressing, OnQ, and medication compliance.
== END 2023-06-16 15:50 | disposition home or self-care (01) | DRG 470 ==
LOC: PAS 05:16 → ORTHO 4S 06:32
PROVIDERS: ADMIT Orthopaedic Surgery; ATTEND Orthopaedic Surgery
PROC: 5A09357 Assistance with Respiratory Ventilation, Less than 24 Consecutive Hours, Continuous Positive Airway Pressure (ICD-10-PCS; 2023-06-13)
PROC: 3E0T3BZ Introduction of Anesthetic Agent into Peripheral Nerves and Plexi, Percutaneous Approach (ICD-10-PCS; 2023-06-13)
PROC: 3E0T33Z Introduction of Anti-inflammatory into Peripheral Nerves and Plexi, Percutaneous Approach (ICD-10-PCS; 2023-06-13)
PROC: 0SRC0J9 Replacement of Right Knee Joint with Synthetic Substitute, Cemented, Open Approach (ICD-10-PCS; principal; 2023-06-13 07:04)
DX: M17.11 Unilateral primary osteoarthritis, right knee (principal)
CPT/HCPCS: Z7506; Z7508; 36415; 71045; 73560; 80051; 80053; 82948; 84443; 85025; 86885; 86900; 86901; 87081; 97110; 97161; 97530; 97535; A4215; A4615; A6258; A7000; C1713; C1776; G0378; J0171; J0690; J0735; J1170; J1580; J2175; J2250; J2704; J2765; J2795; J3010; J3370; J3480; J3490; J7120; Q0163

== ENCOUNTER 2024-02-14 08:50 | Outpatient (CLI) | payer BC ==
[2024-02-14 10:29] LABS: HEMOGLOBIN A1C 6.3 % (4.5-6.2)
[2024-02-14 10:43] LABS: CHOL/HDL RATIO 5.4 (0.00-4.99); CHOLESTEROL 178 MG/DL (0-200); FREE T4 (FREE THYROXINE) 0.83 NG/DL (0.73-1.40); HDL CHOLESTEROL 33 MG/DL (35-60); LDL CHOLESTEROL 94 MG/DL (50-100); THYROID STIMULATING HORMONE 1.17 ulU/ml (0.34-4.50); TRIGLYCERIDES 314 MG/DL (20-135)
== END 2024-02-14 23:59 | disposition home or self-care (01) ==
LOC: LAB 08:50
PROVIDERS: ATTEND Family Medicine
DX: E06.3 Autoimmune thyroiditis (principal); R73.09 Other abnormal glucose; E78.5 Hyperlipidemia, unspecified
CPT/HCPCS: 36415; 80061; 83036; 84439; 84443

== ENCOUNTER 2024-09-12 08:52 | Emergency (ER) | payer BC ==
[~2024-09-12] VITALS: Ht 152.4 cm; Wt 118.2 kg
[2024-09-12] MEDS ORDERED: HYDR-3973 PO (10:42)
[2024-09-12 11:01] VITALS: BP 176/82; PULSE 80; RESP 13; TEMP 98; O2SAT 96
== END 2024-09-12 11:17 | disposition home or self-care (01) ==
LOC: ER 08:52
DX: M25.562 Pain in left knee (principal); I25.2 Old myocardial infarction; G47.30 Sleep apnea, unspecified; E03.9 Hypothyroidism, unspecified; G89.29 Other chronic pain; M54.9 Dorsalgia, unspecified; F32.A Depression, unspecified; Z90.710 Acquired absence of both cervix and uterus; Z88.1 Allergy status to other antibiotic agents; Z88.8 Allergy status to other drugs, medicaments and biological substances; Z91.048 Other nonmedicinal substance allergy status; Z79.1 Long term (current) use of non-steroidal anti-inflammatories (NSAID); Z79.899 Other long term (current) drug therapy; Z98.890 Other specified postprocedural states
CPT/HCPCS: 29505; 73564; 73700; 99284

== ENCOUNTER 2024-09-18 07:34 | Outpatient (CLI) | payer BC ==
[~2024-09-18 07:34] MED LIST changes: +HYDR-3973 PO
== END 2024-09-18 23:59 | disposition home or self-care (01) ==
LOC: MRI02 07:34
PROVIDERS: ATTEND Family Medicine
DX: M71.22 Synovial cyst of popliteal space [Baker], left knee (principal); M22.42 Chondromalacia patellae, left knee; M25.361 Other instability, right knee; M25.362 Other instability, left knee; M25.462 Effusion, left knee; M25.562 Pain in left knee; M25.461 Effusion, right knee; M25.561 Pain in right knee; M79.672 Pain in left foot
CPT/HCPCS: 73721

== ENCOUNTER 2024-10-09 11:40 | Outpatient (CLI) | payer BC ==
[~2024-10-09 11:40] MED LIST changes: -HYDR-3973 PO
[2024-10-09 12:57] LABS: BILIRUBIN,URINE NEGATIVE (Neg); CLARITY,URINE CLEAR (Clear); COLOR,URINE YELLOW (Yellow); GLUCOSE, URINE NEGATIVE (Neg); KETONES,URINE NEGATIVE (Neg); LEUKOCYTE ESTERASE ,URINE NEGATIVE (Neg); NITRITES, URINE NEGATIVE (Neg); OCCULT BLOOD,URINE NEGATIVE (Neg); PH,URINE 5.5 (4.8-8.0); PROTEIN,URINE NEGATIVE (Neg); UROBILINOGEN,URINE 0.2 E.U/dL (0.2-1.0)
[2024-10-09 12:57] LABS: BASOPHILS % (AUTO) 0.4 % (0-1); EOSINOPHILS # (AUTO) 0.2 X10'3 (0-0.9); EOSINOPHILS % (AUTO) 2.3 % (0-6); HEMATOCRIT 39.5 % (35.0-45.0); HEMOGLOBIN 13.5 g/dl (12.0-16.0); LYMPHOCYTES # (AUTO) 2.7 X10'3 (1.1-4.8); LYMPHOCYTES % (AUTO) 32.6 % (21-51); MEAN CORPUSCULAR HEMOGLOBIN 29.9 PG (27.0-31.0); MEAN CORPUSCULAR VOLUME 87.7 FL (78-98); MEAN PLATELET VOLUME 8.6 FL (7.4-10.4); MONOCYTES # (AUTO) 0.7 X10'3 (0-0.9); NEUTROPHILS # (AUTO) 4.6 X10'3 (1.8-7.7); NEUTROPHILS % (AUTO) 56.7 % (42-75); PLATELET COUNT 355 X10'3 (140-440); RED CELL DISTRIBUTION WIDTH 14.4 % (11.5-14.5); WHITE BLOOD COUNT 8.1 X10'3 (4.5-11.0)
[2024-10-09 12:59] LABS: UA COLLECTION TYPE CLN CATCH MIDSTREAM
[2024-10-09 13:06] LABS: HEMOGLOBIN A1C 7.2 % (4.5-6.2)
[2024-10-09 13:51] LABS: ANION GAP 8 (8-16); BLOOD UREA NITROGEN 18 MG/DL (7-18); CHLORIDE 102 MMOL/L (99-107); GLUCOSE 107 MG/DL (70-104); SODIUM 139 MMOL/L (135-145); TOTAL CARBON DIOXIDE 29.4 MMOL/L (24-32)
[2024-10-09 13:52] LABS: ALANINE AMINOTRANSFERASE 28 U/L (12-78); ALBUMIN 3.9 G/DL (3.4-5.0); ALKALINE PHOSPHATASE 97 IU/L (46-116); ASPARTATE AMINO TRANSFERASE 15 U/L (10-37); BILIRUBIN,TOTAL 0.4 MG/DL (0.1-1.0); C-REACTIVE PROTEIN 2.42 MG/DL (0.0-0.5); CALCIUM 9.4 MG/DL (8.5-10.1); CHOLESTEROL < 50 MG/DL (0-200); CREATININE 0.72 MG/DL (0.40-0.90); FREE T4 (FREE THYROXINE) 0.89 NG/DL (0.73-1.40); HDL CHOLESTEROL 43 MG/DL (35-60); LDL CHOLESTEROL 129 MG/DL (50-100); TOTAL PROTEIN 7.9 G/DL (6.4-8.2); TRIGLYCERIDES 282 MG/DL (20-135); eGFR 83 ML/MIN
[2024-10-09 13:53] LABS: THYROID STIMULATING HORMONE 1.34 ulU/ml (0.34-4.50)
[2024-10-12 08:10] LABS: COMPLEMENT C3, SERUM 245 mg/dL (82-167); COMPLEMENT C4, SERUM 31 mg/dL (12-38)
[2024-10-12 15:11] LABS: ACTIN ANTIBODY 5 Units (0-19); ANTI-DSDNA ANTIBODIES <1 IU/mL (0-9); ANTINUCLEAR ANTIBODIES Negative (Negative); ANTISCLERODERMA-70 ANTIBODIES <0.2 AI (0.0-0.9); RNP ANTIBODIES <0.2 AI (0.0-0.9)
[2024-10-12 17:11] LABS: CCP IGG ANTIBODIES 6 units (0-19)
== END 2024-10-09 23:59 | disposition home or self-care (01) ==
LOC: RAD 11:40
PROVIDERS: ATTEND Family Medicine
DX: E07.9 Disorder of thyroid, unspecified (principal); E78.5 Hyperlipidemia, unspecified; L08.9 Local infection of the skin and subcutaneous tissue, unspecified; L85.3 Xerosis cutis; M25.50 Pain in unspecified joint; M35.9 Systemic involvement of connective tissue, unspecified; M79.10 Myalgia, unspecified site; R73.09 Other abnormal glucose; Z83.2 Family history of diseases of the blood and blood-forming organs and certain disorders involving the immune mechanism
CPT/HCPCS: 36415; 80053; 80061; 81003; 83036; 83516; 84439; 84443; 85025; 85651; 86038; 86140; 86147; 86160; 86200; 86235; 86431

== ENCOUNTER 2025-01-27 10:00 | Outpatient (CLI) | payer BC ==
[2025-01-27 11:33] LABS: BILIRUBIN,URINE NEGATIVE (Neg); CLARITY,URINE CLEAR (Clear); COLOR,URINE YELLOW (Yellow); GLUCOSE, URINE NEGATIVE (Neg); KETONES,URINE NEGATIVE (Neg); LEUKOCYTE ESTERASE ,URINE SMALL (Neg); NITRITES, URINE NEGATIVE (Neg); OCCULT BLOOD,URINE NEGATIVE (Neg); PROTEIN,URINE NEGATIVE (Neg); UROBILINOGEN,URINE 0.2 E.U/dL (0.2-1.0)
[2025-01-27 11:33] LABS: BASOPHILS # (AUTO) 0.1 X10'3 (0-0.2); BASOPHILS % (AUTO) 0.9 % (0-1); EOSINOPHILS # (AUTO) 0.2 X10'3 (0-0.9); EOSINOPHILS % (AUTO) 2.4 % (0-6); HEMATOCRIT 40.8 % (35.0-45.0); HEMOGLOBIN 13.3 g/dl (12.0-16.0); LYMPHOCYTES # (AUTO) 3.3 X10'3 (1.1-4.8); LYMPHOCYTES % (AUTO) 32.4 % (21-51); MEAN CORPUSCULAR HEMOGLOBIN 28.3 PG (27.0-31.0); MEAN CORPUSCULAR HGB CONC 32.5 g/dL (33.0-36.5); MEAN CORPUSCULAR VOLUME 87.1 FL (78-98); MEAN PLATELET VOLUME 8.7 FL (7.4-10.4); MONOCYTES # (AUTO) 0.7 X10'3 (0-0.9); MONOCYTES % (AUTO) 7.1 % (2-12); NEUTROPHILS # (AUTO) 5.9 X10'3 (1.8-7.7); NEUTROPHILS % (AUTO) 57.2 % (42-75); PLATELET COUNT 340 X10'3 (140-440); RED BLOOD COUNT 4.68 X10'6 (4.20-5.60); RED CELL DISTRIBUTION WIDTH 14.4 % (11.5-14.5); WHITE BLOOD COUNT 10.2 X10'3 (4.5-11.0)
[2025-01-27 11:47] LABS: ALANINE AMINOTRANSFERASE 34 U/L (12-78); ALBUMIN 3.8 G/DL (3.4-5.0); ALKALINE PHOSPHATASE 92 IU/L (46-116); ANION GAP 10 (8-16); ASPARTATE AMINO TRANSFERASE 14 U/L (10-37); BILIRUBIN,TOTAL 0.2 MG/DL (0.1-1.0); BLOOD UREA NITROGEN 15 MG/DL (7-18); BUN/CREATININE RATIO 23.4 (10.0-20.0); C-REACTIVE PROTEIN 1.91 MG/DL (0.0-0.5); CALCIUM 9.1 MG/DL (8.5-10.1); CHLORIDE 102 MMOL/L (99-107); CREATININE 0.64 MG/DL (0.40-0.90); GLUCOSE 192 MG/DL (70-104); POTASSIUM 3.7 MMOL/L (3.5-5.1); SODIUM 140 MMOL/L (135-145); TOTAL CARBON DIOXIDE 27.6 MMOL/L (24-32); TOTAL PROTEIN 7.6 G/DL (6.4-8.2); eGFR > 90 ML/MIN
[2025-01-27 11:47] LABS: UA COLLECTION TYPE CLN CATCH MIDSTREAM
[2025-01-27 11:50] LABS: BACTERIA,URINE FEW /HPF (Neg); RBC,URINE 0-2 /HPF (0-2); SQUAMOUS EPITHELIAL CELL,UR FEW /LPF (FEW)
[2025-01-27 11:51] LABS: MUCUS STRANDS FEW /LPF (Neg)
== END 2025-01-27 23:59 | disposition home or self-care (01) ==
LOC: LAB 10:00
PROVIDERS: ATTEND Family Medicine
DX: E78.5 Hyperlipidemia, unspecified (principal); E07.9 Disorder of thyroid, unspecified; E11.9 Type 2 diabetes mellitus without complications; E78.1 Pure hyperglyceridemia; M25.50 Pain in unspecified joint; M35.9 Systemic involvement of connective tissue, unspecified; M79.10 Myalgia, unspecified site; R76.0 Raised antibody titer; Z79.899 Other long term (current) drug therapy
CPT/HCPCS: 36415; 80053; 81001; 82043; 82570; 85025; 85651; 86038; 86140; 86147; 86160

== ENCOUNTER → 2025-03-25 | Outpatient (CLI) | payer BC ==
[~2025-03-25] VITALS: Ht 154.9 cm; Wt 118.4 kg
[2025-03-25] VITALS (8 sets, daily range): BP systolic 110–162; BP diastolic 62–72; PULSE 65–85; RESP 14–18; O2SAT 98–99
[2025-03-25] MEDS: regadenoson 0.4mg/5ml syringe IV ONE (09:25)
--- NOTE | 2025-03-25 14:52 | RADIOLOGY REPORT ---
EXAM: NM NM MALU SCAN HISTORY: ATHSCL HEART DISEASE OF [place] & [place] COR ART W ANG PCTRS W SPASM COMPARISON: NM MALU SCAN on DOS: 02/05/23 TECHNIQUE: A single day protocol was utilized. Resting examination was performed with intravenous ad ministration of 8 mCi of technetium 99m MyoView. A gated stress examination was performed with the i ntravenous administration of 30 mCi of technetium 99m MyoView and 0.4 mg/mL Lexiscan. SPECT imaging performed at rest followed by same day gated SPECT imaging following pharmacologic stress with 0.4 mg /ml Regadenoson (Lexiscan) IV. FINDINGS: Large severe reversible defect in the anterior wall and the adjacent lateral wall , septum and apex. No fixed defect is seen. The gated data was reviewed at the computer monitor and there is seen fairly uniform, unremarkable le ft ventricular wall motion. No areas of akinesia or significant hypokinesia are present. The computer calculates a global left ventricular ejection fraction of 62%, which is above the 51% lo wer limit of normal. IMPRESSION: 1. Large, severe stress-induced ischemia involving the anterior wall and the adjacent apex, lateral w all and septum. 2. Unremarkable left ventricular wall motion. 3. Normal left ventricular ejection fraction of 62%.
== END | disposition home or self-care (01) ==
LOC: RAD 08:05
PROVIDERS: ATTEND Internal Medicine Cardiovascular Disease
DX: Z01.810 Encounter for preprocedural cardiovascular examination (principal); I25.111 Atherosclerotic heart disease of native coronary artery with angina pectoris with documented spasm
CPT/HCPCS: 78452; 93017; A9500; J2785

== ENCOUNTER 2025-04-01 05:57 | Day surgery (SDC) | payer BC ==
[~2025-04-01] VITALS: Ht 154.9 cm; Wt 118.1 kg
[2025-04-01] VITALS (12 sets, daily range): BP systolic 129–169; BP diastolic 68–87; PULSE 58–80; RESP 11–18; TEMP 98.6; O2SAT 92–95
[2025-04-01] MEDS ORDERED: METF-900 PO (06:37)
[2025-04-01] MEDS ORDERED: TRAZ-256 PO (06:37)
--- NOTE | 2025-04-01 06:45 | ELECTROCARDIOGRAPH REPORT ---
[facility] Test Date: 2025-04-01 Test Time: 06:41:31 Pat Name: FIFI TOPETE Department: [facility] Patient ID: [facility]-[id number] Room: Gender: F [employer] Nut [employer] Worker: DORIS : 1965 Requested By: MARILYN LEÓN Order Number: [id number] Reading MD: Dr. DONALD León Measurements Intervals [place] Rate: 73 P: 18 OK: 170 QRS: -1 QRSD: 99 T: 17 QT: 401 QTc: 442 Interpretive Statements Sinus rhythm Electronically Signed On 04-01-2025 18:23:[address] DONALD León Please click the below link to view image of tracing.
[2025-04-01] MEDS ORDERED: verapamil 2.5 mg/ml inj IV ONE (07:22)
[2025-04-01] MEDS ORDERED: iohexol 350MG/ML 100ml bottle IV ONE ×3 (07:22→09:20)
[2025-04-01] MEDS ORDERED: iohexol 350 MG/ML 50ML vial IV ONE ×2 (07:22→09:46)
[2025-04-01] MEDS ORDERED: midazolam 1 mg/ML 2ml injection ONE ×6 (07:22→09:17)
[2025-04-01] MEDS ORDERED: fentaNYL/PF 50MCG/1 ML 2ML syringe ONE ×3 (07:22→09:03)
[2025-04-01] MEDS ORDERED: heparin 1,000unit/ml 10ml vial 10 ML ONE ×2 (07:22→08:43)
[2025-04-01] MEDS ORDERED: LIDOcaine 1% (10mg/ml) 2ml vial ONE (07:22)
[2025-04-01] MEDS ORDERED: nitroGLYCERIN 500mcg/5mL D5W 5 ML IV ONE ×3 (07:23→09:42)
[2025-04-01 07:24] LABS: BASOPHILS # (AUTO) 0.1 X10'3 (0-0.2); BASOPHILS % (AUTO) 0.8 % (0-1); EOSINOPHILS # (AUTO) 0.2 X10'3 (0-0.9); EOSINOPHILS % (AUTO) 2.2 % (0-6); HEMATOCRIT 37.2 % (35.0-45.0); HEMOGLOBIN 12.6 g/dl (12.0-16.0); LYMPHOCYTES # (AUTO) 2.6 X10'3 (1.1-4.8); LYMPHOCYTES % (AUTO) 31.9 % (21-51); MEAN CORPUSCULAR HEMOGLOBIN 28.8 PG (27.0-31.0); MEAN CORPUSCULAR HGB CONC 33.8 g/dL (33.0-36.5); MEAN CORPUSCULAR VOLUME 85.2 FL (78-98); MONOCYTES # (AUTO) 0.7 X10'3 (0-0.9); MONOCYTES % (AUTO) 7.9 % (2-12); NEUTROPHILS # (AUTO) 4.8 X10'3 (1.8-7.7); NEUTROPHILS % (AUTO) 57.2 % (42-75); PLATELET COUNT 289 X10'3 (140-440); RED BLOOD COUNT 4.37 X10'6 (4.20-5.60); RED CELL DISTRIBUTION WIDTH 14.6 % (11.5-14.5); WHITE BLOOD COUNT 8.3 X10'3 (4.5-11.0)
[2025-04-01] MEDS: LORazepam 0.5 MG tablet PO PRN (07:26)
[2025-04-01] MEDS: normal saline 1,000 ML IV SCH (07:27)
[2025-04-01] MEDS: diphenhydrAMINE 25mg capsule PO PRN (07:27)
[2025-04-01 07:36] LABS: APTT 24 SECONDS (22-32); PROTHROMBIN TIME 10.3 SECONDS (9.0-12.0)
[2025-04-01 07:59] LABS: ALBUMIN 3.6 G/DL (3.4-5.0); ANION GAP 11 (8-16); BLOOD UREA NITROGEN 12 MG/DL (7-18); BUN/CREATININE RATIO 15.8 (10.0-20.0); CALCIUM 9.1 MG/DL (8.5-10.1); CHLORIDE 102 MMOL/L (99-107); CREATININE 0.76 MG/DL (0.40-0.90); GLUCOSE 171 MG/DL (70-104); POTASSIUM 3.8 MMOL/L (3.5-5.1); SODIUM 140 MMOL/L (135-145); TOTAL CARBON DIOXIDE 26.6 MMOL/L (24-32); eCRCL 59 ML/MIN; eGFR 78 ML/MIN
[2025-04-01] MEDS ORDERED: heparin 25,000 UNIT/250ml bag 250 ML IV ONE (08:29)
[2025-04-01] MEDS ORDERED: HYDROmorphone 1 mg/ml syringe ONE (09:30)
[2025-04-01] MEDS ORDERED: clopidogrel 300mg tablet ONE (10:02)
[2025-04-01] MEDS ORDERED: HYDROcodone/acetaminophen 5mg/325mg tablet PO PRN (10:25)
[2025-04-01] MEDS ORDERED: ondansetron/PF 4mg/2ml inj IV PRN (10:25)
[2025-04-01] MEDS ORDERED: OXAZEpam 15mg capsule PO PRN (10:25)
[2025-04-01] MEDS ORDERED: normal saline 1000ml 1,000 ML IV ONE (10:25)
[2025-04-01] MEDS ORDERED: proCHLORperazine 10 MG/2 ml inj IV PRN (10:25)
--- NOTE | 2025-04-01 10:29 | ELECTROCARDIOGRAPH REPORT ---
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 DONALD León Measurements Intervals [place] Rate: 56 P: 40 AR: 176 QRS: -8 QRSD: 97 T: 5 QT: 437 QTc: 422 Interpretive Statements Sinus rhythm Electronically Signed On 04-01-2025 18:23:[address] DONALD León Please click the below link to view image of tracing.
[2025-04-01] MEDS ORDERED: morphine 4 MG/ML inj SYRINge IV PRN (10:30)
[2025-04-01] MEDS ORDERED: CLOP-32 PO (10:38)
[2025-04-01] MEDS ORDERED: ASPI-1265 PO (10:42)
[2025-04-01] MEDS ORDERED: ROSU40TA PO (10:43)
[2025-04-01] MEDS: HYDROcodone/acetaminophen 10/325mg tab PO PRN (12:54)
[2025-04-01] MEDS: ACETYLCYSTEINE 200 MG/1 ML 4 ML ORAL SOLUTION PO SCH (15:36)
--- NOTE | 2025-04-02 08:26 | CARDIOLOGY REPORT ---
DATE OF SERVICE: 04/01/2025 DICTATING PHYSICIAN: DONALD Campos MD CARDIAC CATHETERIZATION GENDER: Female. AGE: [age] years old. HEIGHT: 154 cm. WEIGHT: 118 kilos. BODY SURFACE AREA: 2.1 m2. PRIMARY PHYSICIAN: Aurelio Delgado MD, [facility]. 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 She had a myocardial perfusion scan on 03/25/2025, which showed a large severe anterior wall, apex and lateral wall and septum. After discussing the risks and benefits, alternative options, the patient wants to proceed with the definitive coronary angiography. She is also having episodes of chest pain and shortness of breath. Risks, benefits, and alternative options were discussed. Informed consent was obtained. PROCEDURE TECHNIQUE: Procedure done under ultrasound. The patient underwent left heart catheterization from right radial approach, 6-[place] arterial sheath. Post-procedure access site hemostasis secured with right radial band. The patient tolerated the procedure well/ COMPLICATIONS: None. PROCEDURES DONE: * Ultrasound-guided right radial artery visualization and access. * Left heart catheterization. * LVG. * Coronary cineangiography. * PTCA stenting of the proximal and mid LAD. * Conscious sedation of 90 minutes. HEMODYNAMICS: Aortic systolic 124, diastolic 83, mean 112 mmHg. LVDP of 17 mmHg. There is no significant gradient across the aortic valve. LEFT VENTRICULOGRAM: Overall left ventricular systolic function normal with LV ejection fraction of 65-70%. CORONARY CINEANGIOGRAPHY: Left main coronary artery is a large caliber vessel arising at the bifurcated left main coronary artery courses through the anterior intraventricular groove and ends by wrapping around the apex. Left main coronary artery is large caliber vessel arising from the left aortic sinus and engaged with JL4 catheter. Left main coronary artery has minimal luminal irregularities and divides into three branches. LAD is a medium caliber vessel, arising at the bifurcation of the left main coronary artery, small to medium and has a 70% proximal, mid 70% narrowing. Remainder of the LAD and ramus intermedius is 3 mm caliber vessel arising at the bifurcation of the left main and courses through in between LAD and circumflex. There are mild luminal irregularities. Circumflex artery is a medium caliber vessel, arising at the bifurcation of the left main coronary artery and courses through the left AV groove and has mild luminal irregularities. OM1 is a very small vessel. OM2 is 2.5 mm caliber with mild luminal irregularities. OM3 is 2 mm caliber with mild luminal irregularities. Right coronary artery is a medium caliber codominant vessel arising at right aortic sinus, courses through the AV groove and ends at the posterior crux. RCA: Ostium may have about 30% narrowing. PTCA STENTING OF THE PROXIMAL AND MID LAD: After adequate heparinization, the PTCA stenting was carried out. XB LAD 3.5 guide without side hole gave good support. The LAD lesion crossed with PT2 moderate wire. The LAD lesion angioplasty with 2.2/12 mm balloon at 8 x 5 at 10 atmosphere. Lesion was stented with 2.25/26 Resolute Jluis stent. Deployed at 12 atmosphere. Proximal portion of the stent is 2.5/15 Resolute [place] overlapping fashion. Both the stents were post dilated with a 2.5/15 mm NC balloon at 12 followed by 14 atmospheric pressure. Post-procedure 0% residual, GUSTABO 3 flow. The patient tolerated the procedure with no complication. IMPRESSION: * A 60-year-old female with LV ejection fraction of 65-70%. * LVEDP is 17 mmHg with no significant gradient across the aortic valve. * Left main normal. * LAD proximal and mid 70% narrowing, successfully angioplastied and stented with 2.25/26 and 2.5/15 mm Resolute Jluis stent postdilated with 2.5 NC balloon to GUSTABO-3 flow. Post-procedure 0% residual, GUSTABO 3 flow. The patient tolerated the procedure with no complication. * Ramus encircled with minimal disease. Dominant RCA ostial with 30% narrowing. RECOMMENDATIONS: I would recommend continued aggressive coronary risk factor modification with a low fat and low cholesterol diet, maintaining ideal body weight, keeping LDL less than 70 mg, regular exercise program. Hhemoglobin A1c less than 7%, systolic blood pressure less than 130 mmHg. The patient also counseled on diet, weight loss and exercise. DONALD Campos MD TID: [id number] RECEIPT: [id number] BC/SUB/AMI cc: Aurelio Delgado MD MTDD
== END 2025-04-01 16:00 | disposition home or self-care (01) ==
LOC: SSTAY O 05:57
PROVIDERS: ATTEND Internal Medicine Cardiovascular Disease
DX: I25.112 Atherosclerotic heart disease of native coronary artery with refractory angina pectoris (principal); I10 Essential (primary) hypertension; E78.5 Hyperlipidemia, unspecified; G47.33 Obstructive sleep apnea (adult) (pediatric); G43.909 Migraine, unspecified, not intractable, without status migrainosus; Z88.8 Allergy status to other drugs, medicaments and biological substances; Z79.01 Long term (current) use of anticoagulants; Z79.899 Other long term (current) drug therapy; K21.9 Gastro-esophageal reflux disease without esophagitis
CPT/HCPCS: 36415; 80048; 82948; 85025; 85347; 85610; 85730; 93005; 93458; C1874; C9600; J1171; J1644; J2003; J2250; J3010; J3490; J7030; Q0163; Q9967; 76937; 99152; 99153; A6258; A6449; C1725; C1751; C1769; C1894; C9601

== ENCOUNTER 2025-04-29 09:03 | Outpatient (CLI) | payer BC ==
[~2025-04-29 09:03] MED LIST changes: +ASPI-1265 PO; +CLOP-32 PO; +METF-900 PO; +ROSU40TA PO; -TRAZ-251 PO; +TRAZ-256 PO
--- NOTE | 2025-04-29 11:13 | RADIOLOGY REPORT ---
EXAM: DI HAND,LIMITED (AP/LAT), DI HAND,LIMITED (AP/LAT) CLINICAL INDICATION: ARTHRITIS IN BILATERAL HANDS - left hand - unable to remove ring TECHNIQUE: DI HAND,LIMITED (AP/LAT), DI HAND,LIMITED (AP/LAT) Comparison: None FINDINGS/IMPRESSION: There is no evidence of acute fracture or dislocation. 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 The alignment is anatomical. There is no radiopaque foreign body.
== END 2025-04-29 23:59 | disposition home or self-care (01) ==
LOC: RAD 09:03
PROVIDERS: ATTEND Family Medicine
DX: M18.0 Bilateral primary osteoarthritis of first carpometacarpal joints (principal); R79.82 Elevated C-reactive protein (CRP); M19.049 Primary osteoarthritis, unspecified hand; R76.0 Raised antibody titer
CPT/HCPCS: 36415; 73120; 86146; 86147

== ENCOUNTER 2025-08-11 12:18 | Outpatient (CLI) | payer BC ==
[2025-08-11 12:46] LABS: MEAN PLATELET VOLUME 8.9 FL (7.4-10.4); RED CELL DISTRIBUTION WIDTH 14.4 % (11.5-14.5)
[2025-08-11 13:07] LABS: CHOL/HDL RATIO 2.8 (0.00-4.99); CREATININE 0.67 MG/DL (0.40-0.90); LDL CHOLESTEROL 39 MG/DL (50-100); TOTAL CARBON DIOXIDE 29.6 MMOL/L (24-32); eGFR 90 ML/MIN
[2025-08-13 11:23] LABS: SMITH ANTIBODIES <0.2 AI (0.0-0.9)
[2025-08-13 17:10] LABS: CREATININE, URINE 131.7 mg/dL (Not Estab.); MICROALB/CRT, RATIO 8 mg/g creat (0-29); MICROALBUMIN,U,RANDOM 11.1 ug/mL (Not Estab.)
== END 2025-08-11 23:59 | disposition home or self-care (01) ==
LOC: RAD 12:18
PROVIDERS: ATTEND Internal Medicine Rheumatology
DX: E11.9 Type 2 diabetes mellitus without complications (principal); E78.1 Pure hyperglyceridemia; E78.5 Hyperlipidemia, unspecified; E03.9 Hypothyroidism, unspecified; I25.10 Atherosclerotic heart disease of native coronary artery without angina pectoris; R76.0 Raised antibody titer; Z79.899 Other long term (current) drug therapy
CPT/HCPCS: 36415; 80053; 80061; 82043; 82570; 83036; 84439; 84443; 85025; 86038